=== PATIENT | male | born 1960 | race Caucasian/White ===

== ENCOUNTER 2021-11-08 17:21 | Inpatient (IN) | payer MEDICARE, MEDICAID ==
[~2021-11-08] VITALS: Ht 186.7 cm; Wt 114.5 kg
[2021-11-08] MEDS ORDERED: SENN8.6T11 PO (17:56)
[2021-11-08] MEDS ORDERED: ACET325T9 PO (17:56)
[2021-11-08] MEDS ORDERED: MELO15TA23 PO (17:56)
[2021-11-08] MEDS ORDERED: ARIP5TAB13 PO (17:56)
[2021-11-08] MEDS ORDERED: ILOP6TAB2 PO (17:56)
[2021-11-08] MEDS ORDERED: GABA-586 PO (17:56)
[2021-11-08] MEDS ORDERED: DIVA500T4 PO ×2 (17:56)
[2021-11-08] MEDS ORDERED: LEVO50TA5 PO (17:56)
[2021-11-08] MEDS ORDERED: TRAZ-125 PO (17:56)
[2021-11-08] MEDS ORDERED: MELA5TAB20 PO (17:56)
[2021-11-08] MEDS ORDERED: TIZA-75 PO (17:56)
[2021-11-08] MEDS ORDERED: CYCL1DRO EACHEYE (17:56)
[2021-11-08] MEDS ORDERED: FAMO1TAB3 PO (17:56)
[2021-11-08] MEDS ORDERED: MAGN24003 PO (17:56)
[2021-11-08] MEDS ORDERED: MAG HYDROX/AL HYDROX/SIMETH 30 ML ORAL.SUSP PO PRN (20:30)
[2021-11-08] MEDS ORDERED: METHYL SALICYLATE/MENTHOL TOPICAL OINTMENT 57GM TUBE. TP PRN (20:30)
[2021-11-08] MEDS ORDERED: MAGNESIUM HYDROXIDE 2,400 MG/30 ML ORAL.SUSP. PO PRN (20:30)
[2021-11-08 20:35] VITALS: BP 142/86
[2021-11-08] MEDS ORDERED: tiZANidine 4 MG TABLET. PO PRN (20:45)
[2021-11-08] MEDS ORDERED: calcium carbonate PO (20:52)
[2021-11-08] MEDS ORDERED: ACET1TAB33 PO (20:52)
[2021-11-08] MEDS ORDERED: CALCIUM CARBONATE 500 MG TAB.CHEW PO PRN (21:15)
[2021-11-08] MEDS: traZODone 100 MG TABLET. PO SCH (21:17)
[2021-11-08] MEDS: GABAPENTIN 300 MG CAPSULE. PO SCH (21:17)
[2021-11-08] MEDS: DIVALPROEX ER 500 MG TAB.ER.24H PO SCH (21:18)
[2021-11-08] MEDS: cycloSPORINE 0.05% OPTH 1 DROP DROPERETTE OU SCH (21:18)
[2021-11-09] MEDS: LEVOTHYROXINE 50 MCG TABLET PO SCH (05:00)
[2021-11-09 06:03] VITALS: BP 137/85
[2021-11-09 07:02] LABS: BASO # 0.1 x10^3/uL (0.0-0.2); BASO % 1 % (0-3); EOS # 0.3 x10^3/uL (0.0-0.7); EOS % 6 % (0-3); HEMATOCRIT 41.2 % (39.0-53.0); LYMPH # 1.3 x10^3/uL (1.0-4.8); LYMPH % 27 % (24-48); MEAN CORPUSCULAR HEMOGLOBIN 30 pg (25-35); MEAN CORPUSCULAR HGB CONC 34 g/dL (31-37); MEAN CORPUSCULAR VOLUME 88 fL (79-100); MONO # 0.7 x10^3/uL (0.0-1.1); MONO % 15 % (0-9); NEUT # 2.4 x10^3uL (1.8-7.7); NEUT % 51 % (31-73); PLATELET COUNT 200 x10^3/uL (140-400); RED BLOOD COUNT 4.68 x10^6/uL (4.30-5.70); RED CELL DISTRIBUTION WIDTH 13.3 % (11.5-14.5); WHITE BLOOD COUNT 4.7 x10^3/uL (4.0-11.0)
[2021-11-09 07:10] LABS: ALBUMIN 3.2 g/dL (3.4-5.0); ALBUMIN/GLOBULIN RATIO 1.1 (1.0-1.7); ALK PHOS 42 U/L (46-116); ALT (SGPT) 26 U/L (16-63); ANION GAP 4 (6-14); AST (SGOT) 10 U/L (15-37); BLOOD UREA NITROGEN 9 mg/dL (8-26); BUN/CREATININE RATIO 11 (6-20); CALCIUM 8.3 mg/dL (8.5-10.1); CARBON DIOXIDE 30 mmol/L (21-32); CHLORIDE 98 mmol/L (98-107); CREATININE 0.8 mg/dL (0.7-1.3); GFR 97.6; GLUCOSE 92 mg/dL (70-99); MAGNESIUM 1.9 mg/dL (1.8-2.4); POTASSIUM 3.9 mmol/L (3.5-5.1); SODIUM 132 mmol/L (136-145); TOTAL BILIRUBIN 0.3 mg/dL (0.2-1.0)
[2021-11-09 07:21] LABS: VAL ACID 83 mcg/mL (50-100)
[2021-11-09] MEDS: ARIPiprazole 5 MG TABLET PO SCH (08:37)
[2021-11-09] MEDS: GABAPENTIN 300 MG CAPSULE. PO SCH ×3 (08:37→19:59)
[2021-11-09] MEDS: DIVALPROEX ER 500 MG TAB.ER.24H PO SCH ×3 (08:37→19:59)
[2021-11-09] MEDS: cycloSPORINE 0.05% OPTH 1 DROP DROPERETTE OU SCH ×2 (08:37→19:58)
[2021-11-09 11:26] LABS: CHOLESTEROL/HDL RATIO 3.9; THYROID STIM HORMONE (TSH) 1.824 uIU/mL (0.358-3.740)
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
--- NOTE | 2021-11-09 12:53 | EKG ---
[address] [address] Test Date: 2021-11-09 Test Time: 05:21:51 Pat Name: DARBY HARDY Department: Room: [address] [place] [address] Gender: M Medical Records Field Technician: : 1960 Requested By: LILY SANDERS Order Number: [id number] Reading MD: Michael Ramirez Measurements Intervals [place] Rate: P: AR: QRS: QRSD: T: QT: QTc: Interpretive Statements SINUS RHYTHM Electronically Signed On 11-10-2021 13:54:59 SERVICE TRANSFORMER REPAIR SUPERVISOR by Michael Ramirez
[2021-11-09 15:59] VITALS: BP 141/92
[2021-11-09 17:26] LABS: CLARITY,URINE CLEAR; COLOR,URINE YELLOW; GLUCOSE,URINE NEG (NEG)
[2021-11-09 17:27] LABS: BACTERIA,URINE 0 /HPF (0-FEW); NITRITE,URINE NEG (NEG); UROBILINOGEN,URINE 0.2 mg/dL (0.2 mg/dL); WBC,URINE 0 /HPF (0-4)
[2021-11-09] MEDS: MELATONIN 3 MG TABLET PO SCH (19:59)
[2021-11-09] MEDS: traZODone 100 MG TABLET. PO SCH (19:59)
--- NOTE | 2021-11-09 21:34 | PDOC ---
Exam Note: Elliott Note: Please also refer to the separate dictated note~for this date of service dictated separately.~Patient seen individually. Discussed the patient with Nursing staff reviewed the chart.~Reviewed interim history and current functioning. Reviewed vital signs,~Labs/ Radiology~and current medications noted below. Continue current treatment with the changes noted in the dictated addendum note Assessment: Vital Signs/I&O: Vital Signs Date Time Temp Pulse Resp B/P (MAP) Pulse Ox O2 Delivery O2 Flow Rate FiO2 11/09/21 15:59 97.4 76 16 141/92 (108) 95 11/09/21 06:03 Room Air I & O 11/08/21 11/08/21 11/09/21 14:59 22:59 06:59 Intake Total 240 ml Balance 240 ml Labs: Laboratory Tests Test 11/09/21 06:46 11/09/21 16:25 White Blood Count 4.7 x10^3/uL (4.0-11.0) Red Blood Count 4.68 x10^6/uL (4.30-5.70) Hemoglobin 14.0 g/dL (13.0-17.5) Hematocrit 41.2 % (39.0-53.0) Mean Corpuscular Volume 88 fL (79-100) Mean Corpuscular Hemoglobin 30 pg (25-35) Mean Corpuscular Hemoglobin Concent 34 g/dL (31-37) Red Cell Distribution Width 13.3 % (11.5-14.5) Platelet Count 200 x10^3/uL (140-400) Neutrophils (%) (Auto) 51 % (31-73) Lymphocytes (%) (Auto) 27 % (24-48) Monocytes (%) (Auto) 15 % (0-9) H Eosinophils (%) (Auto) 6 % (0-3) H Basophils (%) (Auto) 1 % (0-3) Neutrophils # (Auto) 2.4 x10^3uL (1.8-7.7) Lymphocytes # (Auto) 1.3 x10^3/uL (1.0-4.8) Monocytes # (Auto) 0.7 x10^3/uL (0.0-1.1) Eosinophils # (Auto) 0.3 x10^3/uL (0.0-0.7) Basophils # (Auto) 0.1 x10^3/uL (0.0-0.2) D-Dimer (Geena) 0.68 mg/L (0.00-0.50) H Sodium Level 132 mmol/L (136-145) L Potassium Level 3.9 mmol/L (3.5-5.1) Chloride Level 98 mmol/L (98-107) Carbon Dioxide Level 30 mmol/L (21-32) Anion Gap 4 (6-14) L Blood Urea Nitrogen 9 mg/dL (8-26) Creatinine 0.8 mg/dL (0.7-1.3) Estimated GFR (Cockcroft-Gault) 97.6 BUN/Creatinine Ratio 11 (6-20) Glucose Level 92 mg/dL (70-99) Calcium Level 8.3 mg/dL (8.5-10.1) L Magnesium Level 1.9 mg/dL (1.8-2.4) Iron Level 111 ug/dL (65-175) Total Iron Binding Capacity 258 ug/dL (250-450) Iron Saturation 43 % (15-34) H Total Bilirubin 0.3 mg/dL (0.2-1.0) Aspartate Amino Transferase (AST) 10 U/L (15-37) L Alanine Aminotransferase (ALT) 26 U/L (16-63) Alkaline Phosphatase 42 U/L (46-116) L Total Protein 6.0 g/dL (6.4-8.2) L Albumin 3.2 g/dL (3.4-5.0) L Albumin/Globulin Ratio 1.1 (1.0-1.7) Triglycerides Level 154 mg/dL (0-150) H Cholesterol Level 168 mg/dL (0-200) LDL Cholesterol, Calculated 94 mg/dL (0-100) VLDL Cholesterol, Calculated 31 mg/dL (0-40) Non-HDL Cholesterol Calculated 125 mg/dL (0-129) HDL Cholesterol 43 mg/dL (40-60) Cholesterol/HDL Ratio 3.9 Thyroid Stimulating Hormone (TSH) 1.824 uIU/mL (0.358-3.740) Valproic Acid Level 83 mcg/mL (50-100) Valproic Acid Last Dose Date 11/08/21 Valproic Acid Last Dose Time 2100 Urine Collection Type Clean catch Urine Color Yellow Urine Clarity Clear Urine pH 8.0 Urine Specific [place] 1.020 Urine Protein Neg (NEG-TRACE) Urine Glucose (UA) Neg mg/dL (NEG) Urine Ketones (Stick) Neg mg/dL (NEG) Urine Blood Trace (NEG) Urine Nitrite Neg (NEG) Urine Bilirubin Neg (NEG) Urine Urobilinogen Dipstick 0.2 mg/dL (0.2 mg/dL) Urine Leukocyte Esterase Neg (NEG) Urine RBC 1-2 /HPF (0-2) Urine WBC 0 /HPF (0-4) Urine Squamous Epithelial Cells None /LPF Urine Bacteria 0 /HPF (0-FEW) Current Medications: Meds: Laboratory Tests Test 11/09/21 06:46 11/09/21 16:25 White Blood Count 4.7 x10^3/uL Red Blood Count 4.68 x10^6/uL Hemoglobin 14.0 g/dL Hematocrit 41.2 % Mean Corpuscular Volume 88 fL Mean Corpuscular Hemoglobin 30 pg Mean Corpuscular Hemoglobin Concent 34 g/dL Red Cell Distribution Width 13.3 % Platelet Count 200 x10^3/uL Neutrophils (%) (Auto) 51 % Lymphocytes (%) (Auto) 27 % Monocytes (%) (Auto) 15 % Eosinophils (%) (Auto) 6 % Basophils (%) (Auto) 1 % Neutrophils # (Auto) 2.4 x10^3uL Lymphocytes # (Auto) 1.3 x10^3/uL Monocytes # (Auto) 0.7 x10^3/uL Eosinophils # (Auto) 0.3 x10^3/uL Basophils # (Auto) 0.1 x10^3/uL D-Dimer (Geena) 0.68 mg/L Sodium Level 132 mmol/L Potassium Level 3.9 mmol/L Chloride Level 98 mmol/L Carbon Dioxide Level 30 mmol/L Anion Gap 4 Blood Urea Nitrogen 9 mg/dL Creatinine 0.8 mg/dL Estimated GFR (Cockcroft-Gault) 97.6 BUN/Creatinine Ratio 11 Glucose Level 92 mg/dL Calcium Level 8.3 mg/dL Magnesium Level 1.9 mg/dL Iron Level 111 ug/dL Total Iron Binding Capacity 258 ug/dL Iron Saturation 43 % Total Bilirubin 0.3 mg/dL Aspartate Amino Transf (AST/SGOT) 10 U/L Alanine Aminotransferase (ALT/SGPT) 26 U/L Alkaline Phosphatase 42 U/L Total Protein 6.0 g/dL Albumin 3.2 g/dL Albumin/Globulin Ratio 1.1 Triglycerides Level 154 mg/dL Cholesterol Level 168 mg/dL LDL Cholesterol, Calculated 94 mg/dL VLDL Cholesterol, Calculated 31 mg/dL Non-HDL Cholesterol Calculated 125 mg/dL HDL Cholesterol 43 mg/dL Cholesterol/HDL Ratio 3.9 Thyroid Stimulating Hormone (TSH) 1.824 uIU/mL Valproic Acid (Depakene) Level 83 mcg/mL Valproic Acid Last Dose Date 11/08/21 Valproic Acid Last Dose Time 2100 Urine Collection Type Clean catch Urine Color Yellow Urine Clarity Clear Urine pH 8.0 Urine Specific Jam[place] 1.020 Urine Protein Neg Urine Glucose (UA) Neg mg/dL Urine Ketones (Stick) Neg mg/dL Urine Blood Trace Urine Nitrite Neg Urine Bilirubin Neg Urine Urobilinogen Dipstick 0.2 mg/dL Urine Leukocyte Esterase Neg Urine RBC 1-2 /HPF Urine WBC 0 /HPF Urine Squamous Epithelial Cells None /LPF Urine Bacteria 0 /HPF Current Medications Medications (Trade) Dose Ordered Sig/Jean Route PRN Reason Start Time Stop Time Status Last Admin Dose Admin Acetaminophen (Tylenol) 650 mg PRN Q6HRS PRN PO MILD PAIN / TEMP > 100.3'F 11/08/21 20:30 Multi-Ingredient Ointment (Analgesic [place]) 1 alton PRN QID PRN TP MUSCLE PAIN 11/08/21 20:30 Al Hydroxide/Mg Hydroxide (Mylanta Plus Xs) 15 ml PRN AFTMEALHC PRN PO 2ND CHOICE DYSPEPSIA 11/08/21 20:30 Magnesium Hydroxide (Milk Of Magnesia) 2,400 mg PRN QHS PRN PO CONSTIPATION 11/08/21 20:30 Cyclosporine (Restasis) 1 drop BID OU 11/08/21 21:00 11/09/21 19:58 Gabapentin (Neurontin) 300 mg TID PO 11/08/21 21:00 11/09/21 19:59 Levothyroxine Sodium (Synthroid) 50 mcg DAILY06 PO 11/09/21 06:00 11/09/21 05:00 Tizanidine HCl (Zanaflex) 2 mg PRN Q8HRS PRN PO MUSCLE SPASMS 11/08/21 20:45 Aripiprazole (Abilify) 5 mg DAILY PO 11/09/21 09:00 11/09/21 08:37 Divalproex Sodium (Depakote Er) 500 mg AFTRNOON PO 11/09/21 13:00 11/09/21 13:25 Divalproex Sodium (Depakote Er) 500 mg BID PO 11/08/21 21:00 11/09/21 19:59 Trazodone HCl (Desyrel) 100 mg QHS PO 11/08/21 21:00 11/09/21 19:59 Non-Formulary Medication (Iloperidone (Fanapt)) 6 mg BID PO 11/08/21 21:00 UNV Melatonin (Melatonin) 6 mg QHS PO 11/09/21 21:00 11/09/21 19:59 Acetaminophen/ Codeine Phosphate (Tylenol #3) 1 tab PRN Q6HRS PRN PO MOD-SEV PAIN 11/08/21 21:00 Calcium Carbonate/ Glycine (Tums) 1,000 mg PRN Q4HRS PRN PO 1ST CHOICE INDIGESTION 11/08/21 21:15 11/09/21 08:38 Olanzapine (ZyPREXA ZYDIS) 2.5 mg PRN Q2HR PRN PO PSYCHOSIS 11/09/21 08:30 Current Medications Medications (Trade) Dose Ordered Sig/Jean Route PRN Reason Start Time Stop Time Status Last Admin Dose Admin Levothyroxine Sodium (Synthroid) 50 mcg DAILY06 PO 11/09/21 06:00 11/09/21 05:00 Aripiprazole (Abilify) 5 mg DAILY PO 11/09/21 09:00 11/09/21 08:37 Divalproex Sodium (Depakote Er) 500 mg AFTRNOON PO 11/09/21 13:00 11/09/21 13:25 Melatonin (Melatonin) 6 mg QHS PO 11/09/21 21:00 11/09/21 19:59 I have reviewed the current psychotropics carefully including drug interactions. Risk benefit ratio favors no change other than as noted in my dictated progress note. Diagnosis: Problems: (1) Schizoaffective disorder LILY SANDERS MD Nov 09, 2021 21:34
[2021-11-10] MEDS: LEVOTHYROXINE 50 MCG TABLET PO SCH (05:20)
[2021-11-10 05:37] LABS: THYROXINE 7.1 ug/dL (4.5-12.0)
[2021-11-10] MEDS: ACETAMINOPHEN 325 MG TABLET PO PRN (05:55)
[2021-11-10 06:07] VITALS: BP 142/87
[2021-11-10] MEDS: ARIPiprazole 5 MG TABLET PO SCH (09:14)
[2021-11-10] MEDS: GABAPENTIN 300 MG CAPSULE. PO SCH ×3 (09:14→20:11)
[2021-11-10] MEDS: DIVALPROEX ER 500 MG TAB.ER.24H PO SCH ×3 (09:14→20:11)
[2021-11-10] MEDS: cycloSPORINE 0.05% OPTH 1 DROP DROPERETTE OU SCH ×2 (09:14→20:11)
[2021-11-10] MEDS: ACETAMINOPHEN/CODEINE 300/30MG TABLET PO PRN (10:46)
[2021-11-10 15:54] VITALS: BP 150/80
[2021-11-10] MEDS: MELATONIN 3 MG TABLET PO SCH (20:11)
[2021-11-10] MEDS: traZODone 100 MG TABLET. PO SCH (20:11)
--- NOTE | 2021-11-10 21:34 | PDOC ---
Exam Note: Elliott Note: Please also refer to the separate dictated note~for this date of service dictated separately.~Patient seen individually. Discussed the patient with Nursing staff reviewed the chart.~Reviewed interim history and current functioning. Reviewed vital signs,~Labs/ Radiology~and current medications noted below. Continue current treatment with the changes noted in the dictated addendum note Assessment: Vital Signs/I&O: Vital Signs Date Time Temp Pulse Resp B/P (MAP) Pulse Ox O2 Delivery O2 Flow Rate FiO2 11/10/21 15:54 98.6 64 18 150/80 (103) 99 Room Air I & O 11/09/21 11/09/21 11/10/21 15:00 23:00 07:00 Intake Total 660 ml 480 ml Balance 660 ml 480 ml Current Medications: Meds: Current Medications Medications (Trade) Dose Ordered Sig/Jean Route PRN Reason Start Time Stop Time Status Last Admin Dose Admin Acetaminophen (Tylenol) 650 mg PRN Q6HRS PRN PO MILD PAIN / TEMP > 100.3'F 11/08/21 20:30 11/10/21 05:55 Multi-Ingredient Ointment (Analgesic [place]) 1 alton PRN QID PRN TP MUSCLE PAIN 11/08/21 20:30 Al Hydroxide/Mg Hydroxide (Mylanta Plus Xs) 15 ml PRN AFTMEALHC PRN PO 2ND CHOICE DYSPEPSIA 11/08/21 20:30 Magnesium Hydroxide (Milk Of Magnesia) 2,400 mg PRN QHS PRN PO CONSTIPATION 11/08/21 20:30 Cyclosporine (Restasis) 1 drop BID OU 11/08/21 21:00 11/10/21 20:11 Gabapentin (Neurontin) 300 mg TID PO 11/08/21 21:00 11/10/21 20:11 Levothyroxine Sodium (Synthroid) 50 mcg DAILY06 PO 11/09/21 06:00 11/10/21 05:20 Tizanidine HCl (Zanaflex) 2 mg PRN Q8HRS PRN PO MUSCLE SPASMS 11/08/21 20:45 Aripiprazole (Abilify) 5 mg DAILY PO 11/09/21 09:00 11/10/21 20:32 DC 11/10/21 09:14 Divalproex Sodium (Depakote Er) 500 mg AFTRNOON PO 11/09/21 13:00 11/10/21 13:26 Divalproex Sodium (Depakote Er) 500 mg BID PO 11/08/21 21:00 11/10/21 20:11 Trazodone HCl (Desyrel) 100 mg QHS PO 11/08/21 21:00 11/10/21 20:11 Non-Formulary Medication (Iloperidone (Fanapt)) 6 mg BID PO 11/08/21 21:00 UNV Melatonin (Melatonin) 6 mg QHS PO 11/09/21 21:00 11/10/21 20:11 Acetaminophen/ Codeine Phosphate (Tylenol #3) 1 tab PRN Q6HRS PRN PO MOD-SEV PAIN 11/08/21 21:00 11/10/21 10:46 Calcium Carbonate/ Glycine (Tums) 1,000 mg PRN Q4HRS PRN PO 1ST CHOICE INDIGESTION 11/08/21 21:15 11/09/21 08:38 Olanzapine (ZyPREXA ZYDIS) 2.5 mg PRN Q2HR PRN PO PSYCHOSIS 11/09/21 08:30 Aripiprazole (Abilify) 10 mg DAILY PO 11/11/21 09:00 I have reviewed the current psychotropics carefully including drug interactions. Risk benefit ratio favors no change other than as noted in my dictated progress note. Diagnosis: Problems: (1) Schizoaffective disorder LILY SANDERS MD Nov 10, 2021 21:34
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
[2021-11-11] MEDS: LEVOTHYROXINE 50 MCG TABLET PO SCH (04:58)
[2021-11-11 06:01] VITALS: BP 139/85
--- NOTE | 2021-11-11 08:03 | PDOC ---
Exam Note: Elliott Note: This note is a late entry for 11/10/2021 covers elements not covered in my initial note. Subjective: The patient was seen individually on 11/10/2021, discussed and reviewed the chart with Ganesh FOX. The patient slept 8-1/2 hours previous night. He is reasonably oriented. He does complain of headaches. I had been called yesterday that the patients Iloperidone could not be substituted here and attempt will be made to obtain from the detention. In the meantime, we will increase his Abilify from 5 mg a day to 10 mg a day for his psychosis. Review of Systems: No CV, , pulmonary, eye system symptoms on review. Mental Status Exam: The patient is reasonably oriented. I met with him in his room. Speech is coherent, a little pressured. Abstraction fair. Computation impaired. Language function intact. Attention span is fair. Mood and affect remains somewhat anxious, labile. I questioned him persistently and carefully to clarify when his psychotropics was started and by whom and he seemed quite oblivious of this. Laboratory Data: Reviewed. Impression: Schizoaffective disorder, bipolar type, mixed with psychotic features. Anxiety disorder unspecified. Impulse control disorder unspecified. Plan: The patient has been smoking at the facility prior to coming to us. We have started him on Nicorette patch. We will increase the Abilify as noted. Maintain Depakote current dosage 500 mg b.i.d. Labs level to be checked tomorrow morning. Assessment: Vital Signs/I&O: Vital Signs Date Time Temp Pulse Resp B/P (MAP) Pulse Ox O2 Delivery O2 Flow Rate FiO2 11/11/21 06:01 97.7 65 16 139/85 (103) 95 11/10/21 15:54 Room Air I & O 11/10/21 11/10/21 11/11/21 15:00 23:00 07:00 Intake Total 680 ml 240 ml 240 ml Balance 680 ml 240 ml 240 ml Current Medications: I have reviewed the current psychotropics carefully including drug interactions. Risk benefit ratio favors no change other than as noted in my dictated progress note. Diagnosis: Problems: (1) Schizoaffective disorder, bipolar type (2) Anxiety disorder, unspecified (3) Impulse control disorder, unspecified LILY SANDERS MD Nov 11, 2021 08:03
[2021-11-11] MEDS: NICOTINE 14MG PATCH. TD SCH (08:38)
[2021-11-11] MEDS: ARIPiprazole 10 MG TABLET PO SCH (08:38)
[2021-11-11] MEDS: GABAPENTIN 300 MG CAPSULE. PO SCH ×3 (08:38→20:04)
[2021-11-11] MEDS: DIVALPROEX ER 500 MG TAB.ER.24H PO SCH ×3 (08:38→20:04)
[2021-11-11] MEDS: cycloSPORINE 0.05% OPTH 1 DROP DROPERETTE OU SCH ×2 (08:38→20:04)
[2021-11-11 15:43] VITALS: BP 135/86
[2021-11-11] MEDS: MELATONIN 3 MG TABLET PO SCH (20:03)
[2021-11-11] MEDS: traZODone 100 MG TABLET. PO SCH (20:04)
[2021-11-11] MEDS: ACETAMINOPHEN/CODEINE 300/30MG TABLET PO PRN (20:07)
--- NOTE | 2021-11-11 21:12 | PDOC ---
Exam Note: Elliott Note: Please also refer to the separate dictated note~for this date of service dictated separately.~Patient seen individually. Discussed the patient with Nursing staff reviewed the chart.~Reviewed interim history and current functioning. Reviewed vital signs,~Labs/ Radiology~and current medications noted below. Continue current treatment with the changes noted in the dictated addendum note Assessment: Vital Signs/I&O: Vital Signs Date Time Temp Pulse Resp B/P (MAP) Pulse Ox O2 Delivery O2 Flow Rate FiO2 11/11/21 15:43 98.1 81 16 135/86 (102) 95 11/10/21 15:54 Room Air I & O 11/10/21 11/10/21 11/11/21 15:00 23:00 07:00 Intake Total 680 ml 240 ml 240 ml Balance 680 ml 240 ml 240 ml Current Medications: Meds: Current Medications Medications (Trade) Dose Ordered Sig/Jean Route PRN Reason Start Time Stop Time Status Last Admin Dose Admin Acetaminophen (Tylenol) 650 mg PRN Q6HRS PRN PO MILD PAIN / TEMP > 100.3'F 11/08/21 20:30 11/10/21 05:55 Multi-Ingredient Ointment (Analgesic [place]) 1 alton PRN QID PRN TP MUSCLE PAIN 11/08/21 20:30 Al Hydroxide/Mg Hydroxide (Mylanta Plus Xs) 15 ml PRN AFTMEALHC PRN PO 2ND CHOICE DYSPEPSIA 11/08/21 20:30 Magnesium Hydroxide (Milk Of Magnesia) 2,400 mg PRN QHS PRN PO CONSTIPATION 11/08/21 20:30 Cyclosporine (Restasis) 1 drop BID OU 11/08/21 21:00 11/11/21 20:04 Gabapentin (Neurontin) 300 mg TID PO 11/08/21 21:00 11/11/21 20:04 Levothyroxine Sodium (Synthroid) 50 mcg DAILY06 PO 11/09/21 06:00 11/11/21 04:58 Tizanidine HCl (Zanaflex) 2 mg PRN Q8HRS PRN PO MUSCLE SPASMS 11/08/21 20:45 Aripiprazole (Abilify) 5 mg DAILY PO 11/09/21 09:00 11/10/21 20:32 DC 11/10/21 09:14 Divalproex Sodium (Depakote Er) 500 mg AFTRNOON PO 11/09/21 13:00 11/11/21 13:08 Divalproex Sodium (Depakote Er) 500 mg BID PO 11/08/21 21:00 11/11/21 20:04 Trazodone HCl (Desyrel) 100 mg QHS PO 11/08/21 21:00 11/11/21 20:04 Non-Formulary Medication (Iloperidone (Fanapt)) 6 mg BID PO 11/08/21 21:00 Melatonin (Melatonin) 6 mg QHS PO 11/09/21 21:00 11/11/21 20:03 Acetaminophen/ Codeine Phosphate (Tylenol #3) 1 tab PRN Q6HRS PRN PO MOD-SEV PAIN 11/08/21 21:00 11/11/21 20:07 Calcium Carbonate/ Glycine (Tums) 1,000 mg PRN Q4HRS PRN PO 1ST CHOICE INDIGESTION 11/08/21 21:15 11/09/21 08:38 Olanzapine (ZyPREXA ZYDIS) 2.5 mg PRN Q2HR PRN PO PSYCHOSIS 11/09/21 08:30 Aripiprazole (Abilify) 10 mg DAILY PO 11/11/21 09:00 11/11/21 08:38 Nicotine (Nicoderm Cq 14mg Patch) 1 patch DAILY TD 11/11/21 09:00 11/11/21 08:38 Current Medications Medications (Trade) Dose Ordered Sig/Jean Route PRN Reason Start Time Stop Time Status Last Admin Dose Admin Aripiprazole (Abilify) 10 mg DAILY PO 11/11/21 09:00 11/11/21 08:38 Nicotine (Nicoderm Cq 14mg Patch) 1 patch DAILY TD 11/11/21 09:00 11/11/21 08:38 I have reviewed the current psychotropics carefully including drug interactions. Risk benefit ratio favors no change other than as noted in my dictated progress note. Diagnosis: Problems: (1) Schizoaffective disorder, bipolar type (2) Impulse control disorder, unspecified (3) Anxiety disorder, unspecified LILY SANDERS MD Nov 11, 2021 21:12
[2021-11-12] MEDS: LEVOTHYROXINE 50 MCG TABLET PO SCH (05:26)
[2021-11-12 06:26] VITALS: BP 119/75
[2021-11-12] MEDS: GABAPENTIN 300 MG CAPSULE. PO SCH ×3 (08:06→20:30)
[2021-11-12] MEDS: ARIPiprazole 10 MG TABLET PO SCH (08:06)
[2021-11-12] MEDS: cycloSPORINE 0.05% OPTH 1 DROP DROPERETTE OU SCH ×2 (08:07→20:31)
[2021-11-12] MEDS: DIVALPROEX ER 500 MG TAB.ER.24H PO SCH ×3 (08:07→20:30)
[2021-11-12] MEDS: NICOTINE 14MG PATCH. TD SCH (08:07)
[2021-11-12] MEDS: ACETAMINOPHEN/CODEINE 300/30MG TABLET PO PRN (08:13)
[2021-11-12 16:14] VITALS: BP 139/85
[2021-11-12] MEDS: MELATONIN 3 MG TABLET PO SCH (20:30)
[2021-11-12] MEDS: traZODone 100 MG TABLET. PO SCH (20:30)
--- NOTE | 2021-11-12 21:38 | PDOC ---
Exam Note: Elliott Note: Please also refer to the separate dictated note~for this date of service dictated separately.~Patient seen individually. Discussed the patient with Nursing staff reviewed the chart.~Reviewed interim history and current functioning. Reviewed vital signs,~Labs/ Radiology~and current medications noted below. Continue current treatment with the changes noted in the dictated addendum note Assessment: Vital Signs/I&O: Vital Signs Date Time Temp Pulse Resp B/P (MAP) Pulse Ox O2 Delivery O2 Flow Rate FiO2 11/12/21 16:14 98.2 67 20 139/85 (103) 97 11/12/21 09:00 Room Air I & O 11/11/21 11/11/21 11/12/21 15:00 23:00 07:00 Intake Total 1140 ml 600 ml Balance 1140 ml 600 ml Current Medications: Meds: Current Medications Medications (Trade) Dose Ordered Sig/Jean Route PRN Reason Start Time Stop Time Status Last Admin Dose Admin Acetaminophen (Tylenol) 650 mg PRN Q6HRS PRN PO MILD PAIN / TEMP > 100.3'F 11/08/21 20:30 11/10/21 05:55 Multi-Ingredient Ointment (Analgesic [place]) 1 alton PRN QID PRN TP MUSCLE PAIN 11/08/21 20:30 Al Hydroxide/Mg Hydroxide (Mylanta Plus Xs) 15 ml PRN AFTMEALHC PRN PO 2ND CHOICE DYSPEPSIA 11/08/21 20:30 Magnesium Hydroxide (Milk Of Magnesia) 2,400 mg PRN QHS PRN PO CONSTIPATION 11/08/21 20:30 Cyclosporine (Restasis) 1 drop BID OU 11/08/21 21:00 11/12/21 20:31 Gabapentin (Neurontin) 300 mg TID PO 11/08/21 21:00 11/12/21 20:30 Levothyroxine Sodium (Synthroid) 50 mcg DAILY06 PO 11/09/21 06:00 11/12/21 05:26 Tizanidine HCl (Zanaflex) 2 mg PRN Q8HRS PRN PO MUSCLE SPASMS 11/08/21 20:45 Aripiprazole (Abilify) 5 mg DAILY PO 11/09/21 09:00 11/10/21 20:32 DC 11/10/21 09:14 Divalproex Sodium (Depakote Er) 500 mg AFTRNOON PO 11/09/21 13:00 11/12/21 13:06 Divalproex Sodium (Depakote Er) 500 mg BID PO 11/08/21 21:00 11/12/21 20:30 Trazodone HCl (Desyrel) 100 mg QHS PO 11/08/21 21:00 11/12/21 20:30 Non-Formulary Medication (Iloperidone (Fanapt)) 6 mg BID PO 11/08/21 21:00 11/12/21 20:32 Melatonin (Melatonin) 6 mg QHS PO 11/09/21 21:00 11/12/21 20:30 Acetaminophen/ Codeine Phosphate (Tylenol #3) 1 tab PRN Q6HRS PRN PO MOD-SEV PAIN 11/08/21 21:00 11/12/21 08:13 Calcium Carbonate/ Glycine (Tums) 1,000 mg PRN Q4HRS PRN PO 1ST CHOICE INDIGESTION 11/08/21 21:15 11/09/21 08:38 Olanzapine (ZyPREXA ZYDIS) 2.5 mg PRN Q2HR PRN PO PSYCHOSIS 11/09/21 08:30 Aripiprazole (Abilify) 10 mg DAILY PO 11/11/21 09:00 11/12/21 08:06 Nicotine (Nicoderm Cq 14mg Patch) 1 patch DAILY TD 11/11/21 09:00 11/12/21 08:07 I have reviewed the current psychotropics carefully including drug interactions. Risk benefit ratio favors no change other than as noted in my dictated progress note. Diagnosis: Problems: (1) Schizoaffective disorder, bipolar type (2) Impulse control disorder, unspecified (3) Anxiety disorder, unspecified LILY SANDERS MD Nov 12, 2021 21:37
[2021-11-13] MEDS: LEVOTHYROXINE 50 MCG TABLET PO SCH (05:30)
[2021-11-13 06:11] VITALS: BP 135/85
--- NOTE | 2021-11-13 06:52 | PDOC ---
Exam Note: Elliott Note: This note is a late entry for 11/11/2021 covers elements not covered in my initial note. Subjective: The patient was seen individually on 11/11/2021, discussed and reviewed the chart with Susan FOX. Per nursing report the patient has been calm, alert and oriented x4. He had telephone call with his parents. Pharmacy has obtained Fanapt from outside pharmacy and he has been started back on his original dosage 6 mg b.i.d. Valproic acid level 83 therapeutic on 11/09. I met with him in his room. Review of Systems: No CV, , pulmonary, eye system symptoms on review. Mental Status Exam: The patient is reasonably oriented. Speech is coherent, a little pressured. Abstraction fair. Computation impaired. Language function intact. Mood and affect somewhat anxious, labile but improved. No suicidal or homicidal ideation. Laboratory Data: Reviewed. Impression: Schizoaffective disorder, bipolar type, mixed with psychotic features. Anxiety disorder unspecified. Impulse control disorder unspecified. Plan: Continue current psychotropics including Depakote since level is therapeutic and he has been restarted on Fanapt. We have increased Abilify. Rest unchanged for now. Assessment: Vital Signs/I&O: Vital Signs Date Time Temp Pulse Resp B/P (MAP) Pulse Ox O2 Delivery O2 Flow Rate FiO2 11/13/21 06:11 97.5 66 16 135/85 (102) 97 11/12/21 09:00 Room Air I & O 11/12/21 11/12/21 11/13/21 15:00 23:00 07:00 Intake Total 720 ml 240 ml 240 ml Balance 720 ml 240 ml 240 ml Current Medications: I have reviewed the current psychotropics carefully including drug interactions. Risk benefit ratio favors no change other than as noted in my dictated progress note. Diagnosis: Problems: (1) Schizoaffective disorder, bipolar type (2) Impulse control disorder, unspecified (3) Anxiety disorder, unspecified LILY SANDERS MD Nov 13, 2021 06:52
--- NOTE | 2021-11-13 07:06 | PDOC ---
Exam Note: Elliott Note: This note is a late entry for 11/12/2021 covers elements not covered in my initial note. Subjective: The patient was seen individually on 11/12/2021, discussed and reviewed the chart with Pancho FOX. The patient slept 7 hours previous night. He has not been agitated or aggressive, quite pleasant, cooperative per nursing report. Review of Systems: No CV, , pulmonary, eye system symptoms on review. Mental Status Exam: The patient is reasonably oriented. Speech is coherent. Abstraction fair. Computation impaired. Language function intact. Attention span short. Mood and affect somewhat anxious, less labile. Laboratory Data: Reviewed. Impression: Schizoaffective disorder, bipolar type, mixed with psychotic features. Anxiety disorder unspecified. Impulse control disorder unspecified. Plan: Continue current psychotropics. The patient is back on Iloperidone 6 mg twice a day. Check labs and valproic acid level. Adjust as clinically indicated. Assessment: Vital Signs/I&O: Vital Signs Date Time Temp Pulse Resp B/P (MAP) Pulse Ox O2 Delivery O2 Flow Rate FiO2 11/13/21 06:11 97.5 66 16 135/85 (102) 97 11/12/21 09:00 Room Air I & O 11/12/21 11/12/21 11/13/21 15:00 23:00 07:00 Intake Total 720 ml 240 ml 240 ml Balance 720 ml 240 ml 240 ml Current Medications: I have reviewed the current psychotropics carefully including drug interactions. Risk benefit ratio favors no change other than as noted in my dictated progress note. Diagnosis: Problems: (1) Schizoaffective disorder, bipolar type (2) Impulse control disorder, unspecified (3) Anxiety disorder, unspecified LILY SANDERS MD Nov 13, 2021 07:06
[2021-11-13] MEDS: cycloSPORINE 0.05% OPTH 1 DROP DROPERETTE OU SCH ×2 (08:47→20:50)
[2021-11-13] MEDS: NICOTINE 14MG PATCH. TD SCH (08:48)
[2021-11-13] MEDS: GABAPENTIN 300 MG CAPSULE. PO SCH ×3 (08:49→20:49)
[2021-11-13] MEDS: DIVALPROEX ER 500 MG TAB.ER.24H PO SCH ×3 (08:49→20:49)
[2021-11-13] MEDS: ARIPiprazole 10 MG TABLET PO SCH (08:49)
[2021-11-13 15:37] VITALS: BP 115/73
[2021-11-13 15:39] VITALS: BP 115/73
[2021-11-13] MEDS: MELATONIN 3 MG TABLET PO SCH (20:49)
[2021-11-13] MEDS: traZODone 100 MG TABLET. PO SCH (20:49)
--- NOTE | 2021-11-13 21:29 | PDOC ---
Exam Note: Elliott Note: Please also refer to the separate dictated note~for this date of service dictated separately.~Patient seen individually. Discussed the patient with Nursing staff reviewed the chart.~Reviewed interim history and current functioning. Reviewed vital signs,~Labs/ Radiology~and current medications noted below. Continue current treatment with the changes noted in the dictated addendum note Assessment: Vital Signs/I&O: Vital Signs Date Time Temp Pulse Resp B/P (MAP) Pulse Ox O2 Delivery O2 Flow Rate FiO2 11/13/21 15:39 98.1 90 18 115/73 (87) 98 Room Air I & O 11/12/21 11/12/21 11/13/21 15:00 23:00 07:00 Intake Total 720 ml 240 ml 240 ml Balance 720 ml 240 ml 240 ml Current Medications: Meds: Current Medications Medications (Trade) Dose Ordered Sig/Jean Route PRN Reason Start Time Stop Time Status Last Admin Dose Admin Acetaminophen (Tylenol) 650 mg PRN Q6HRS PRN PO MILD PAIN / TEMP > 100.3'F 11/08/21 20:30 11/10/21 05:55 Multi-Ingredient Ointment (Analgesic [place]) 1 alton PRN QID PRN TP MUSCLE PAIN 11/08/21 20:30 Al Hydroxide/Mg Hydroxide (Mylanta Plus Xs) 15 ml PRN AFTMEALHC PRN PO 2ND CHOICE DYSPEPSIA 11/08/21 20:30 Magnesium Hydroxide (Milk Of Magnesia) 2,400 mg PRN QHS PRN PO CONSTIPATION 11/08/21 20:30 Cyclosporine (Restasis) 1 drop BID OU 11/08/21 21:00 11/13/21 20:50 Gabapentin (Neurontin) 300 mg TID PO 11/08/21 21:00 11/13/21 20:49 Levothyroxine Sodium (Synthroid) 50 mcg DAILY06 PO 11/09/21 06:00 11/13/21 05:30 Tizanidine HCl (Zanaflex) 2 mg PRN Q8HRS PRN PO MUSCLE SPASMS 11/08/21 20:45 Aripiprazole (Abilify) 5 mg DAILY PO 11/09/21 09:00 11/10/21 20:32 DC 11/10/21 09:14 Divalproex Sodium (Depakote Er) 500 mg AFTRNOON PO 11/09/21 13:00 11/13/21 13:35 Divalproex Sodium (Depakote Er) 500 mg BID PO 11/08/21 21:00 11/13/21 20:49 Trazodone HCl (Desyrel) 100 mg QHS PO 11/08/21 21:00 11/13/21 20:49 Non-Formulary Medication (Iloperidone (Fanapt)) 6 mg BID PO 11/08/21 21:00 11/13/21 20:49 Melatonin (Melatonin) 6 mg QHS PO 11/09/21 21:00 11/13/21 20:49 Acetaminophen/ Codeine Phosphate (Tylenol #3) 1 tab PRN Q6HRS PRN PO MOD-SEV PAIN 11/08/21 21:00 11/12/21 08:13 Calcium Carbonate/ Glycine (Tums) 1,000 mg PRN Q4HRS PRN PO 1ST CHOICE INDIGESTION 11/08/21 21:15 11/09/21 08:38 Olanzapine (ZyPREXA ZYDIS) 2.5 mg PRN Q2HR PRN PO PSYCHOSIS 11/09/21 08:30 Aripiprazole (Abilify) 10 mg DAILY PO 11/11/21 09:00 11/13/21 08:49 Nicotine (Nicoderm Cq 14mg Patch) 1 patch DAILY TD 11/11/21 09:00 11/13/21 08:48 I have reviewed the current psychotropics carefully including drug interactions. Risk benefit ratio favors no change other than as noted in my dictated progress note. Diagnosis: Problems: (1) Schizoaffective disorder, bipolar type (2) Impulse control disorder, unspecified (3) Anxiety disorder, unspecified LILY SANDERS MD Nov 13, 2021 21:29
[2021-11-14] MEDS: LEVOTHYROXINE 50 MCG TABLET PO SCH (05:48)
[2021-11-14 06:06] VITALS: BP 138/85
[2021-11-14] MEDS: DIVALPROEX ER 500 MG TAB.ER.24H PO SCH ×3 (08:21→19:55)
[2021-11-14] MEDS: cycloSPORINE 0.05% OPTH 1 DROP DROPERETTE OU SCH ×2 (08:21→19:54)
[2021-11-14] MEDS: ARIPiprazole 10 MG TABLET PO SCH (08:21)
[2021-11-14] MEDS: GABAPENTIN 300 MG CAPSULE. PO SCH ×3 (08:21→19:55)
[2021-11-14] MEDS: NICOTINE 14MG PATCH. TD SCH (08:22)
[2021-11-14 16:02] VITALS: BP 148/82
[2021-11-14] MEDS ORDERED: NICOTINE POLACRILEX GUM 2 MG GUM. BC PRN (17:45)
[2021-11-14] MEDS: traZODone 100 MG TABLET. PO SCH (19:55)
[2021-11-14] MEDS: MELATONIN 3 MG TABLET PO SCH (19:55)
--- NOTE | 2021-11-14 21:29 | PDOC ---
Exam Note: Elliott Note: Please also refer to the separate dictated note~for this date of service dictated separately.~Patient seen individually. Discussed the patient with Nursing staff reviewed the chart.~Reviewed interim history and current functioning. Reviewed vital signs,~Labs/ Radiology~and current medications noted below. Continue current treatment with the changes noted in the dictated addendum note Assessment: Vital Signs/I&O: Vital Signs Date Time Temp Pulse Resp B/P (MAP) Pulse Ox O2 Delivery O2 Flow Rate FiO2 11/14/21 16:02 97.9 74 18 148/82 (104) 99 11/13/21 15:39 Room Air I & O 11/13/21 11/13/21 11/14/21 15:00 23:00 07:00 Intake Total 480 ml 720 ml Balance 480 ml 720 ml Current Medications: Meds: Current Medications Medications (Trade) Dose Ordered Sig/Jean Route PRN Reason Start Time Stop Time Status Last Admin Dose Admin Acetaminophen (Tylenol) 650 mg PRN Q6HRS PRN PO MILD PAIN / TEMP > 100.3'F 11/08/21 20:30 11/10/21 05:55 Multi-Ingredient Ointment (Analgesic [place]) 1 alton PRN QID PRN TP MUSCLE PAIN 11/08/21 20:30 Al Hydroxide/Mg Hydroxide (Mylanta Plus Xs) 15 ml PRN AFTMEALHC PRN PO 2ND CHOICE DYSPEPSIA 11/08/21 20:30 Magnesium Hydroxide (Milk Of Magnesia) 2,400 mg PRN QHS PRN PO CONSTIPATION 11/08/21 20:30 Cyclosporine (Restasis) 1 drop BID OU 11/08/21 21:00 11/14/21 19:54 Gabapentin (Neurontin) 300 mg TID PO 11/08/21 21:00 11/14/21 19:55 Levothyroxine Sodium (Synthroid) 50 mcg DAILY06 PO 11/09/21 06:00 11/14/21 05:48 Tizanidine HCl (Zanaflex) 2 mg PRN Q8HRS PRN PO MUSCLE SPASMS 11/08/21 20:45 Aripiprazole (Abilify) 5 mg DAILY PO 11/09/21 09:00 11/10/21 20:32 DC 11/10/21 09:14 Divalproex Sodium (Depakote Er) 500 mg AFTRNOON PO 11/09/21 13:00 11/14/21 12:13 Divalproex Sodium (Depakote Er) 500 mg BID PO 11/08/21 21:00 11/14/21 19:55 Trazodone HCl (Desyrel) 100 mg QHS PO 11/08/21 21:00 11/14/21 19:55 Non-Formulary Medication (Iloperidone (Fanapt)) 6 mg BID PO 11/08/21 21:00 11/14/21 19:56 Melatonin (Melatonin) 6 mg QHS PO 11/09/21 21:00 11/14/21 19:55 Acetaminophen/ Codeine Phosphate (Tylenol #3) 1 tab PRN Q6HRS PRN PO MOD-SEV PAIN 11/08/21 21:00 11/12/21 08:13 Calcium Carbonate/ Glycine (Tums) 1,000 mg PRN Q4HRS PRN PO 1ST CHOICE INDIGESTION 11/08/21 21:15 11/09/21 08:38 Olanzapine (ZyPREXA ZYDIS) 2.5 mg PRN Q2HR PRN PO PSYCHOSIS 11/09/21 08:30 Aripiprazole (Abilify) 10 mg DAILY PO 11/11/21 09:00 11/14/21 08:21 Nicotine (Nicoderm Cq 14mg Patch) 1 patch DAILY TD 11/11/21 09:00 11/14/21 17:42 DC 11/14/21 08:22 Nicotine Polacrilex (Nicorette Gum) 2 mg PRN Q2HRS PRN BC SMOKING CESSATION 11/14/21 17:45 I have reviewed the current psychotropics carefully including drug interactions. Risk benefit ratio favors no change other than as noted in my dictated progress note. Diagnosis: Problems: (1) Schizoaffective disorder, bipolar type (2) Impulse control disorder, unspecified (3) Anxiety disorder, unspecified LILY SANDERS MD Nov 14, 2021 21:29
[2021-11-15] MEDS: LEVOTHYROXINE 50 MCG TABLET PO SCH (05:50)
[2021-11-15 06:20] VITALS: BP 134/86
--- NOTE | 2021-11-15 07:11 | PDOC ---
Exam Note: Elliott Note: This note is a late entry for 11/13/2021 covers elements not covered in my initial note. Subjective: The patient was seen individually on 11/13/2021, discussed and reviewed the chart with Carlie FOX. The patient slept 7-3/4 hours previous night. He is well oriented, has done well on the unit. No suicidal ideation. I met with him outside his room. He was very animated, vernal, appropriate. Review of Systems: No CV, , pulmonary, eye system symptoms on review. Mental Status Exam: The patient is reasonably oriented. Speech is coherent. Abstraction fair. Computation impaired. Language function intact. Attention span short. Mood and affect anxious, labile. No psychotic symptoms, suicidal or homicidal ideation. Laboratory Data: Reviewed. Impression: Schizoaffective disorder, bipolar type, mixed with psychotic features. Anxiety disorder unspecified. Impulse control disorder unspecified. Plan: Continue current psychotropics. The patient is back on Iloperidone 6 mg twice a day. Check labs and valproic acid level. Adjust as clinically indicated. Assessment: Vital Signs/I&O: Vital Signs Date Time Temp Pulse Resp B/P (MAP) Pulse Ox O2 Delivery O2 Flow Rate FiO2 11/15/21 06:20 97.8 66 16 134/86 (102) 96 11/13/21 15:39 Room Air I & O 11/14/21 11/14/21 11/15/21 15:00 23:00 07:00 Intake Total 600 ml 720 ml Balance 600 ml 720 ml Current Medications: I have reviewed the current psychotropics carefully including drug interactions. Risk benefit ratio favors no change other than as noted in my dictated progress note. Diagnosis: Problems: (1) Schizoaffective disorder, bipolar type (2) Impulse control disorder, unspecified (3) Anxiety disorder, unspecified LILY SANDERS MD Nov 15, 2021 07:11
[2021-11-15] MEDS: cycloSPORINE 0.05% OPTH 1 DROP DROPERETTE OU SCH ×2 (08:18→20:10)
[2021-11-15] MEDS: GABAPENTIN 300 MG CAPSULE. PO SCH ×3 (08:19→20:10)
[2021-11-15] MEDS: DIVALPROEX ER 500 MG TAB.ER.24H PO SCH ×3 (08:19→20:10)
[2021-11-15] MEDS: ARIPiprazole 10 MG TABLET PO SCH (08:19)
[2021-11-15] MEDS: ACETAMINOPHEN 325 MG TABLET PO PRN (14:54)
[2021-11-15 15:36] VITALS: BP 133/88
[2021-11-15] MEDS: MELATONIN 3 MG TABLET PO SCH (20:10)
[2021-11-15] MEDS: traZODone 100 MG TABLET. PO SCH (20:11)
--- NOTE | 2021-11-15 21:18 | PDOC ---
Exam Note: Elliott Note: Please also refer to the separate dictated note~for this date of service dictated separately.~Patient seen individually. Discussed the patient with Nursing staff reviewed the chart.~Reviewed interim history and current functioning. Reviewed vital signs,~Labs/ Radiology~and current medications noted below. Continue current treatment with the changes noted in the dictated addendum note Assessment: Vital Signs/I&O: Vital Signs Date Time Temp Pulse Resp B/P (MAP) Pulse Ox O2 Delivery O2 Flow Rate FiO2 11/15/21 15:36 97.3 79 12 133/88 (103) 95 Room Air I & O 11/14/21 11/14/21 11/15/21 15:00 23:00 07:00 Intake Total 600 ml 720 ml Balance 600 ml 720 ml Current Medications: Meds: Current Medications Medications (Trade) Dose Ordered Sig/Jean Route PRN Reason Start Time Stop Time Status Last Admin Dose Admin Acetaminophen (Tylenol) 650 mg PRN Q6HRS PRN PO MILD PAIN / TEMP > 100.3'F 11/08/21 20:30 11/15/21 14:54 Multi-Ingredient Ointment (Analgesic [place]) 1 alton PRN QID PRN TP MUSCLE PAIN 11/08/21 20:30 Al Hydroxide/Mg Hydroxide (Mylanta Plus Xs) 15 ml PRN AFTMEALHC PRN PO 2ND CHOICE DYSPEPSIA 11/08/21 20:30 Magnesium Hydroxide (Milk Of Magnesia) 2,400 mg PRN QHS PRN PO CONSTIPATION 11/08/21 20:30 Cyclosporine (Restasis) 1 drop BID OU 11/08/21 21:00 11/15/21 20:10 Gabapentin (Neurontin) 300 mg TID PO 11/08/21 21:00 11/15/21 20:10 Levothyroxine Sodium (Synthroid) 50 mcg DAILY06 PO 11/09/21 06:00 11/15/21 05:50 Tizanidine HCl (Zanaflex) 2 mg PRN Q8HRS PRN PO MUSCLE SPASMS 11/08/21 20:45 Aripiprazole (Abilify) 5 mg DAILY PO 11/09/21 09:00 11/10/21 20:32 DC 11/10/21 09:14 Divalproex Sodium (Depakote Er) 500 mg AFTRNOON PO 11/09/21 13:00 11/15/21 12:38 Divalproex Sodium (Depakote Er) 500 mg BID PO 11/08/21 21:00 11/15/21 20:10 Trazodone HCl (Desyrel) 100 mg QHS PO 11/08/21 21:00 11/15/21 20:11 Non-Formulary Medication (Iloperidone (Fanapt)) 6 mg BID PO 11/08/21 21:00 11/15/21 20:11 Melatonin (Melatonin) 6 mg QHS PO 11/09/21 21:00 11/15/21 20:10 Acetaminophen/ Codeine Phosphate (Tylenol #3) 1 tab PRN Q6HRS PRN PO MOD-SEV PAIN 11/08/21 21:00 11/12/21 08:13 Calcium Carbonate/ Glycine (Tums) 1,000 mg PRN Q4HRS PRN PO 1ST CHOICE INDIGESTION 11/08/21 21:15 11/09/21 08:38 Olanzapine (ZyPREXA ZYDIS) 2.5 mg PRN Q2HR PRN PO PSYCHOSIS 11/09/21 08:30 Aripiprazole (Abilify) 10 mg DAILY PO 11/11/21 09:00 11/15/21 08:19 Nicotine (Nicoderm Cq 14mg Patch) 1 patch DAILY TD 11/11/21 09:00 11/14/21 17:42 DC 11/14/21 08:22 Nicotine Polacrilex (Nicorette Gum) 2 mg PRN Q2HRS PRN BC SMOKING CESSATION 11/14/21 17:45 I have reviewed the current psychotropics carefully including drug interactions. Risk benefit ratio favors no change other than as noted in my dictated progress note. Diagnosis: Problems: (1) Schizoaffective disorder, bipolar type (2) Impulse control disorder, unspecified (3) Anxiety disorder, unspecified LILY SANDERS MD Nov 15, 2021 21:18
[2021-11-16] MEDS: LEVOTHYROXINE 50 MCG TABLET PO SCH (05:40)
[2021-11-16 06:18] VITALS: BP 146/84
[2021-11-16] MEDS: ARIPiprazole 10 MG TABLET PO SCH (08:51)
[2021-11-16] MEDS: DIVALPROEX ER 500 MG TAB.ER.24H PO SCH ×3 (08:51→20:28)
[2021-11-16] MEDS: GABAPENTIN 300 MG CAPSULE. PO SCH ×3 (08:51→20:29)
[2021-11-16] MEDS: cycloSPORINE 0.05% OPTH 1 DROP DROPERETTE OU SCH ×2 (08:52→20:29)
[2021-11-16] MEDS: ACETAMINOPHEN 325 MG TABLET PO PRN (10:41)
[2021-11-16 15:38] VITALS: BP 150/88
[2021-11-16] MEDS: traZODone 100 MG TABLET. PO SCH (20:29)
[2021-11-16] MEDS: MELATONIN 3 MG TABLET PO SCH (20:29)
--- NOTE | 2021-11-16 21:57 | PDOC ---
Exam Note: Elliott Note: Please also refer to the separate dictated note~for this date of service dictated separately.~Patient seen individually. Discussed the patient with Nursing staff reviewed the chart.~Reviewed interim history and current functioning. Reviewed vital signs,~Labs/ Radiology~and current medications noted below. Continue current treatment with the changes noted in the dictated addendum note Assessment: Vital Signs/I&O: Vital Signs Date Time Temp Pulse Resp B/P (MAP) Pulse Ox O2 Delivery O2 Flow Rate FiO2 11/16/21 15:38 97.6 72 18 150/88 (108) 96 11/16/21 06:18 Room Air I & O 11/15/21 11/15/21 11/16/21 15:00 23:00 07:00 Intake Total 600 ml 480 ml Balance 600 ml 480 ml Current Medications: Meds: Current Medications Medications (Trade) Dose Ordered Sig/Jean Route PRN Reason Start Time Stop Time Status Last Admin Dose Admin Acetaminophen (Tylenol) 650 mg PRN Q6HRS PRN PO MILD PAIN / TEMP > 100.3'F 11/08/21 20:30 11/16/21 10:41 Multi-Ingredient Ointment (Analgesic [place]) 1 alton PRN QID PRN TP MUSCLE PAIN 11/08/21 20:30 Al Hydroxide/Mg Hydroxide (Mylanta Plus Xs) 15 ml PRN AFTMEALHC PRN PO 2ND CHOICE DYSPEPSIA 11/08/21 20:30 Magnesium Hydroxide (Milk Of Magnesia) 2,400 mg PRN QHS PRN PO CONSTIPATION 11/08/21 20:30 Cyclosporine (Restasis) 1 drop BID OU 11/08/21 21:00 11/16/21 20:29 Gabapentin (Neurontin) 300 mg TID PO 11/08/21 21:00 11/16/21 20:29 Levothyroxine Sodium (Synthroid) 50 mcg DAILY06 PO 11/09/21 06:00 11/16/21 05:40 Tizanidine HCl (Zanaflex) 2 mg PRN Q8HRS PRN PO MUSCLE SPASMS 11/08/21 20:45 Aripiprazole (Abilify) 5 mg DAILY PO 11/09/21 09:00 11/10/21 20:32 DC 11/10/21 09:14 Divalproex Sodium (Depakote Er) 500 mg AFTRNOON PO 11/09/21 13:00 11/16/21 12:16 Divalproex Sodium (Depakote Er) 500 mg BID PO 11/08/21 21:00 11/16/21 20:28 Trazodone HCl (Desyrel) 100 mg QHS PO 11/08/21 21:00 11/16/21 20:29 Non-Formulary Medication (Iloperidone (Fanapt)) 6 mg BID PO 11/08/21 21:00 11/16/21 20:28 Melatonin (Melatonin) 6 mg QHS PO 11/09/21 21:00 11/16/21 20:29 Acetaminophen/ Codeine Phosphate (Tylenol #3) 1 tab PRN Q6HRS PRN PO MOD-SEV PAIN 11/08/21 21:00 11/12/21 08:13 Calcium Carbonate/ Glycine (Tums) 1,000 mg PRN Q4HRS PRN PO 1ST CHOICE INDIGESTION 11/08/21 21:15 11/09/21 08:38 Olanzapine (ZyPREXA ZYDIS) 2.5 mg PRN Q2HR PRN PO PSYCHOSIS 11/09/21 08:30 Aripiprazole (Abilify) 10 mg DAILY PO 11/11/21 09:00 11/16/21 08:51 Nicotine (Nicoderm Cq 14mg Patch) 1 patch DAILY TD 11/11/21 09:00 11/14/21 17:42 DC 11/14/21 08:22 Nicotine Polacrilex (Nicorette Gum) 2 mg PRN Q2HRS PRN BC SMOKING CESSATION 11/14/21 17:45 I have reviewed the current psychotropics carefully including drug interactions. Risk benefit ratio favors no change other than as noted in my dictated progress note. Diagnosis: Problems: (1) Schizoaffective disorder, bipolar type (2) Impulse control disorder, unspecified (3) Anxiety disorder, unspecified LILY SANDERS MD Nov 16, 2021 21:57
[2021-11-17] MEDS: LEVOTHYROXINE 50 MCG TABLET PO SCH (05:23)
[2021-11-17 05:54] VITALS: BP 123/81
[2021-11-17 08:07] LABS: BASO % 1 % (0-3); EOS # 0.2 x10^3/uL (0.0-0.7); EOS % 3 % (0-3); HEMATOCRIT 39.3 % (39.0-53.0); LYMPH # 1.3 x10^3/uL (1.0-4.8); LYMPH % 22 % (24-48); MEAN CORPUSCULAR HEMOGLOBIN 31 pg (25-35); MEAN CORPUSCULAR HGB CONC 36 g/dL (31-37); MEAN CORPUSCULAR VOLUME 86 fL (79-100); MONO # 0.8 x10^3/uL (0.0-1.1); MONO % 13 % (0-9); NEUT # 3.7 x10^3uL (1.8-7.7); NEUT % 61 % (31-73); PLATELET COUNT 179 x10^3/uL (140-400); RED BLOOD COUNT 4.59 x10^6/uL (4.30-5.70); RED CELL DISTRIBUTION WIDTH 13.6 % (11.5-14.5)
[2021-11-17] MEDS: cycloSPORINE 0.05% OPTH 1 DROP DROPERETTE OU SCH ×2 (08:13→19:50)
[2021-11-17] MEDS: DIVALPROEX ER 500 MG TAB.ER.24H PO SCH ×3 (08:14→19:51)
[2021-11-17] MEDS: GABAPENTIN 300 MG CAPSULE. PO SCH ×3 (08:14→19:50)
[2021-11-17] MEDS: ARIPiprazole 10 MG TABLET PO SCH (08:14)
[2021-11-17 08:20] LABS: ALBUMIN 3.3 g/dL (3.4-5.0); ALBUMIN/GLOBULIN RATIO 1.1 (1.0-1.7); CALCIUM 8.5 mg/dL (8.5-10.1); CREATININE 0.7 mg/dL (0.7-1.3); GFR 113.9; TOTAL BILIRUBIN 0.3 mg/dL (0.2-1.0); TOTAL PROTEIN 6.3 g/dL (6.4-8.2)
[2021-11-17 15:27] VITALS: BP 137/87
[2021-11-17] MEDS: traZODone 100 MG TABLET. PO SCH (19:50)
[2021-11-17] MEDS: MELATONIN 3 MG TABLET PO SCH (19:51)
[2021-11-17] MEDS: HYDROCORTISONE 1% LOTION BOTTLE. TP SCH (19:52)
--- NOTE | 2021-11-17 22:23 | PDOC ---
Exam Note: Elliott Note: Please also refer to the separate dictated note~for this date of service dictated separately.~Patient seen individually. Discussed the patient with Nursing staff reviewed the chart.~Reviewed interim history and current functioning. Reviewed vital signs,~Labs/ Radiology~and current medications noted below. Continue current treatment with the changes noted in the dictated addendum note Assessment: Vital Signs/I&O: Vital Signs Date Time Temp Pulse Resp B/P (MAP) Pulse Ox O2 Delivery O2 Flow Rate FiO2 11/17/21 15:27 98.3 88 18 137/87 (104) 97 11/16/21 06:18 Room Air I & O 11/16/21 11/16/21 11/17/21 15:00 23:00 07:00 Intake Total 480 ml 900 ml Balance 480 ml 900 ml Labs: Laboratory Tests Test 11/17/21 07:35 White Blood Count 6.0 x10^3/uL (4.0-11.0) Red Blood Count 4.59 x10^6/uL (4.30-5.70) Hemoglobin 14.0 g/dL (13.0-17.5) Hematocrit 39.3 % (39.0-53.0) Mean Corpuscular Volume 86 fL (79-100) Mean Corpuscular Hemoglobin 31 pg (25-35) Mean Corpuscular Hemoglobin Concent 36 g/dL (31-37) Red Cell Distribution Width 13.6 % (11.5-14.5) Platelet Count 179 x10^3/uL (140-400) Neutrophils (%) (Auto) 61 % (31-73) Lymphocytes (%) (Auto) 22 % (24-48) L Monocytes (%) (Auto) 13 % (0-9) H Eosinophils (%) (Auto) 3 % (0-3) Basophils (%) (Auto) 1 % (0-3) Neutrophils # (Auto) 3.7 x10^3uL (1.8-7.7) Lymphocytes # (Auto) 1.3 x10^3/uL (1.0-4.8) Monocytes # (Auto) 0.8 x10^3/uL (0.0-1.1) Eosinophils # (Auto) 0.2 x10^3/uL (0.0-0.7) Basophils # (Auto) 0.0 x10^3/uL (0.0-0.2) Sodium Level 132 mmol/L (136-145) L Potassium Level 4.0 mmol/L (3.5-5.1) Chloride Level 98 mmol/L (98-107) Carbon Dioxide Level 29 mmol/L (21-32) Anion Gap 5 (6-14) L Blood Urea Nitrogen 10 mg/dL (8-26) Creatinine 0.7 mg/dL (0.7-1.3) Estimated GFR (Cockcroft-Gault) 113.9 BUN/Creatinine Ratio 14 (6-20) Glucose Level 96 mg/dL (70-99) Calcium Level 8.5 mg/dL (8.5-10.1) Total Bilirubin 0.3 mg/dL (0.2-1.0) Aspartate Amino Transferase (AST) 13 U/L (15-37) L Alanine Aminotransferase (ALT) 33 U/L (16-63) Alkaline Phosphatase 43 U/L (46-116) L Total Protein 6.3 g/dL (6.4-8.2) L Albumin 3.3 g/dL (3.4-5.0) L Albumin/Globulin Ratio 1.1 (1.0-1.7) Current Medications: Meds: Laboratory Tests Test 11/17/21 07:35 White Blood Count 6.0 x10^3/uL Red Blood Count 4.59 x10^6/uL Hemoglobin 14.0 g/dL Hematocrit 39.3 % Mean Corpuscular Volume 86 fL Mean Corpuscular Hemoglobin 31 pg Mean Corpuscular Hemoglobin Concent 36 g/dL Red Cell Distribution Width 13.6 % Platelet Count 179 x10^3/uL Neutrophils (%) (Auto) 61 % Lymphocytes (%) (Auto) 22 % Monocytes (%) (Auto) 13 % Eosinophils (%) (Auto) 3 % Basophils (%) (Auto) 1 % Neutrophils # (Auto) 3.7 x10^3uL Lymphocytes # (Auto) 1.3 x10^3/uL Monocytes # (Auto) 0.8 x10^3/uL Eosinophils # (Auto) 0.2 x10^3/uL Basophils # (Auto) 0.0 x10^3/uL Sodium Level 132 mmol/L Potassium Level 4.0 mmol/L Chloride Level 98 mmol/L Carbon Dioxide Level 29 mmol/L Anion Gap 5 Blood Urea Nitrogen 10 mg/dL Creatinine 0.7 mg/dL Estimated GFR (Cockcroft-Gault) 113.9 BUN/Creatinine Ratio 14 Glucose Level 96 mg/dL Calcium Level 8.5 mg/dL Total Bilirubin 0.3 mg/dL Aspartate Amino Transf (AST/SGOT) 13 U/L Alanine Aminotransferase (ALT/SGPT) 33 U/L Alkaline Phosphatase 43 U/L Total Protein 6.3 g/dL Albumin 3.3 g/dL Albumin/Globulin Ratio 1.1 Current Medications Medications (Trade) Dose Ordered Sig/Jean Route PRN Reason Start Time Stop Time Status Last Admin Dose Admin Acetaminophen (Tylenol) 650 mg PRN Q6HRS PRN PO MILD PAIN / TEMP > 100.3'F 11/08/21 20:30 11/16/21 10:41 Multi-Ingredient Ointment (Analgesic [place]) 1 alton PRN QID PRN TP MUSCLE PAIN 11/08/21 20:30 Al Hydroxide/Mg Hydroxide (Mylanta Plus Xs) 15 ml PRN AFTMEALHC PRN PO 2ND CHOICE DYSPEPSIA 11/08/21 20:30 Magnesium Hydroxide (Milk Of Magnesia) 2,400 mg PRN QHS PRN PO CONSTIPATION 11/08/21 20:30 Cyclosporine (Restasis) 1 drop BID OU 11/08/21 21:00 11/17/21 19:50 Gabapentin (Neurontin) 300 mg TID PO 11/08/21 21:00 11/17/21 19:50 Levothyroxine Sodium (Synthroid) 50 mcg DAILY06 PO 11/09/21 06:00 11/17/21 05:23 Tizanidine HCl (Zanaflex) 2 mg PRN Q8HRS PRN PO MUSCLE SPASMS 11/08/21 20:45 Aripiprazole (Abilify) 5 mg DAILY PO 11/09/21 09:00 11/10/21 20:32 DC 11/10/21 09:14 Divalproex Sodium (Depakote Er) 500 mg AFTRNOON PO 11/09/21 13:00 11/17/21 13:00 Divalproex Sodium (Depakote Er) 500 mg BID PO 11/08/21 21:00 11/17/21 19:51 Trazodone HCl (Desyrel) 100 mg QHS PO 11/08/21 21:00 11/17/21 19:50 Non-Formulary Medication (Iloperidone (Fanapt)) 6 mg BID PO 11/08/21 21:00 11/17/21 19:51 Melatonin (Melatonin) 6 mg QHS PO 11/09/21 21:00 11/17/21 19:51 Acetaminophen/ Codeine Phosphate (Tylenol #3) 1 tab PRN Q6HRS PRN PO MOD-SEV PAIN 11/08/21 21:00 11/12/21 08:13 Calcium Carbonate/ Glycine (Tums) 1,000 mg PRN Q4HRS PRN PO 1ST CHOICE INDIGESTION 11/08/21 21:15 11/09/21 08:38 Olanzapine (ZyPREXA ZYDIS) 2.5 mg PRN Q2HR PRN PO PSYCHOSIS 11/09/21 08:30 Aripiprazole (Abilify) 10 mg DAILY PO 11/11/21 09:00 11/17/21 08:14 Nicotine (Nicoderm Cq 14mg Patch) 1 patch DAILY TD 11/11/21 09:00 11/14/21 17:42 DC 11/14/21 08:22 Nicotine Polacrilex (Nicorette Gum) 2 mg PRN Q2HRS PRN BC SMOKING CESSATION 11/14/21 17:45 Hydrocortisone (Cortizone-10) 1 alton TID TP 11/17/21 21:00 I have reviewed the current psychotropics carefully including drug interactions. Risk benefit ratio favors no change other than as noted in my dictated progress note. Diagnosis: Problems: (1) Schizoaffective disorder (2) Schizoaffective disorder, bipolar type (3) Impulse control disorder, unspecified (4) Anxiety disorder, unspecified LILY SANDERS MD Nov 17, 2021 22:23
[2021-11-18] MEDS: LEVOTHYROXINE 50 MCG TABLET PO SCH (05:18)
[2021-11-18 06:08] VITALS: BP 119/78
[2021-11-18] MEDS: DIVALPROEX ER 500 MG TAB.ER.24H PO SCH ×3 (08:05→20:33)
[2021-11-18] MEDS: ARIPiprazole 10 MG TABLET PO SCH (08:05)
[2021-11-18] MEDS: GABAPENTIN 300 MG CAPSULE. PO SCH ×3 (08:05→20:33)
[2021-11-18] MEDS: cycloSPORINE 0.05% OPTH 1 DROP DROPERETTE OU SCH ×2 (08:05→20:33)
--- NOTE | 2021-11-18 08:46 | PDOC ---
Exam Note: Elliott Note: This note is a late entry for 11/14/2021 covers elements not covered in my initial note. Subjective: The patient was seen individually on 11/14/2021, discussed and reviewed the chart with Carlie FOX. The patient slept 8 hours previous night. He is not noted to be delusional. I met with him in his room. Review of Systems: No CV, , pulmonary, eye system symptoms on review. Mental Status Exam: The patient is reasonably oriented. He is pleasant, verbal, interactive, has a sense of humor. Speech is coherent. Abstraction fair. Computation impaired. Language function intact. Attention span short. Mood and affect anxious, less labile. Laboratory Data: Reviewed. Impression: Schizoaffective disorder, bipolar type, mixed with psychotic features. Anxiety disorder unspecified. Impulse control disorder unspecified. Plan: Continue current psychotropics. Assessment: Vital Signs/I&O: Vital Signs Date Time Temp Pulse Resp B/P (MAP) Pulse Ox O2 Delivery O2 Flow Rate FiO2 11/18/21 06:08 98.5 66 16 119/78 (92) 95 Room Air I & O 11/17/21 11/17/21 11/18/21 15:00 23:00 07:00 Intake Total 780 ml 520 ml Balance 780 ml 520 ml Current Medications: I have reviewed the current psychotropics carefully including drug interactions. Risk benefit ratio favors no change other than as noted in my dictated progress note. Diagnosis: Problems: (1) Schizoaffective disorder, bipolar type (2) Impulse control disorder, unspecified (3) Anxiety disorder, unspecified LILY SANDERS MD Nov 18, 2021 08:46
[2021-11-18] MEDS: HYDROCORTISONE 1% LOTION BOTTLE. TP SCH ×3 (09:00→20:34)
--- NOTE | 2021-11-18 09:13 | PDOC ---
Exam Note: Elliott Note: This note is a late entry for 11/15/2021 covers elements not covered in my initial note. Subjective: The patient was seen individually on 11/15/2021, discussed and reviewed the chart with Carlie FOX. The patient slept 8 hours previous night. Overall he is doing well though at times per nursing report he makes a bizarre comment with no connection to the conversation at hand. I met with him in his room. Review of Systems: No CV, , pulmonary, eye system symptoms on review. Mental Status Exam: The patient is reasonably oriented. Speech is coherent. Abstraction fair. Computation impaired. Language function intact. Mood and affect still somewhat anxious, labile but improved. Laboratory Data: Reviewed. Impression: Schizoaffective disorder, bipolar type, mixed with psychotic features. Anxiety disorder unspecified. Impulse control disorder unspecified. Plan: Continue current psychotropics. The patients valproic acid level is therapeutic at 83. Maintain Abilify, Depakote, Fanapt, gabapentin, trazodone, and melatonin p.r.n. Adjust further as clinically indicated. Assessment: Vital Signs/I&O: Vital Signs Date Time Temp Pulse Resp B/P (MAP) Pulse Ox O2 Delivery O2 Flow Rate FiO2 11/18/21 06:08 98.5 66 16 119/78 (92) 95 Room Air I & O 11/17/21 11/17/21 11/18/21 14:59 22:59 06:59 Intake Total 780 ml 520 ml Balance 780 ml 520 ml Current Medications: I have reviewed the current psychotropics carefully including drug interactions. Risk benefit ratio favors no change other than as noted in my dictated progress note. Diagnosis: Problems: (1) Schizoaffective disorder (2) Schizoaffective disorder, bipolar type (3) Impulse control disorder, unspecified (4) Anxiety disorder, unspecified LILY SANDERS MD Nov 18, 2021 09:13
--- NOTE | 2021-11-18 09:23 | PDOC ---
Exam Note: Elliott Note: This note is a late entry for 11/16/2021 covers elements not covered in my initial note. Subjective: The patient was seen individually on 11/16/2021, discussed and reviewed the chart with Ganesh FOX. The patient slept 8 hours previous night. He has been fairly pleasant and keeps to himself. I met with him in his room. Review of Systems: No CV, , pulmonary, eye system symptoms on review. Mental Status Exam: The patient is reasonably oriented. Speech is coherent. Abstraction fair. Computation impaired. Language function intact. Attention span short. Mood and affect anxious. Laboratory Data: Reviewed. Impression: Schizoaffective disorder, bipolar type, mixed with psychotic features. Anxiety disorder unspecified. Impulse control disorder unspecified. Plan: Continue current psychotropics. Assessment: Vital Signs/I&O: Vital Signs Date Time Temp Pulse Resp B/P (MAP) Pulse Ox O2 Delivery O2 Flow Rate FiO2 11/18/21 06:08 98.5 66 16 119/78 (92) 95 Room Air I & O 11/17/21 11/17/21 11/18/21 15:00 23:00 07:00 Intake Total 780 ml 520 ml Balance 780 ml 520 ml Current Medications: I have reviewed the current psychotropics carefully including drug interactions. Risk benefit ratio favors no change other than as noted in my dictated progress note. Diagnosis: Problems: (1) Schizoaffective disorder (2) Schizoaffective disorder, bipolar type (3) Impulse control disorder, unspecified (4) Anxiety disorder, unspecified LILY SANDERS MD Nov 18, 2021 09:23
--- NOTE | 2021-11-18 09:32 | PDOC ---
Exam Note: Elliott Note: This note is a late entry for 11/17/2021 covers elements not covered in my initial note. Subjective: The patient was seen individually on 11/17/2021, discussed and reviewed the chart with Carlie FOX. The patient slept 8 hours previous night. At times per nursing report, the patient makes bizarre statements, unconnected to the situation, slightly demanding with nursing staff. He is compliant with medications. As I met with him he complained of rash on his right upper thigh and a possible ganglion cyst right hand. I will defer to Dr. Crespo. We will use Cortaid 1% cream p.r.n. for his rash for now till Dr. Crespo assesses him. Review of Systems: No CV, , pulmonary, eye system symptoms on review. Mental Status Exam: The patient is reasonably oriented. Speech is coherent. Abstraction fair. Computation impaired. Language function intact. Attention span fair. Mood and affect improved. Laboratory Data: Reviewed. Impression: Schizoaffective disorder, bipolar type, mixed with psychotic features. Anxiety disorder unspecified. Impulse control disorder unspecified. Plan: The patient continued Depakote level, therapeutic at 83, Abilify 10 mg a day, Fanapt 6 mg twice a day, gabapentin, trazodone, melatonin will leave unchanged. Assessment: Vital Signs/I&O: Vital Signs Date Time Temp Pulse Resp B/P (MAP) Pulse Ox O2 Delivery O2 Flow Rate FiO2 11/18/21 06:08 98.5 66 16 119/78 (92) 95 Room Air I & O 11/17/21 11/17/21 11/18/21 15:00 23:00 07:00 Intake Total 780 ml 520 ml Balance 780 ml 520 ml Current Medications: I have reviewed the current psychotropics carefully including drug interactions. Risk benefit ratio favors no change other than as noted in my dictated progress note. Diagnosis: Problems: (1) Schizoaffective disorder, bipolar type (2) Impulse control disorder, unspecified (3) Anxiety disorder, unspecified LILY SANDERS MD Nov 18, 2021 09:32
[2021-11-18 15:54] VITALS: BP 124/75
[2021-11-18] MEDS: traZODone 100 MG TABLET. PO SCH (20:33)
[2021-11-18] MEDS: MELATONIN 3 MG TABLET PO SCH (20:33)
[2021-11-18] MEDS: ACETAMINOPHEN 325 MG TABLET PO PRN (20:39)
--- NOTE | 2021-11-18 21:57 | PDOC ---
Exam Note: [place] Note: Please also refer to the separate dictated note~for this date of service dictated separately.~Patient seen individually. Discussed the patient with Nursing staff reviewed the chart.~Reviewed interim history and current functioning. Reviewed vital signs,~Labs/ Radiology~and current medications noted below. Continue current treatment with the changes noted in the dictated addendum note Assessment: Vital Signs/I&O: Vital Signs Date Time Temp Pulse Resp B/P (MAP) Pulse Ox O2 Delivery O2 Flow Rate FiO2 11/18/21 15:54 98.5 89 18 124/75 (91) 97 Room Air I & O 11/17/21 11/17/21 11/18/21 15:00 23:00 07:00 Intake Total 780 ml 520 ml Balance 780 ml 520 ml Current Medications: Meds: Current Medications Medications (Trade) Dose Ordered Sig/Jean Route PRN Reason Start Time Stop Time Status Last Admin Dose Admin Acetaminophen (Tylenol) 650 mg PRN Q6HRS PRN PO MILD PAIN / TEMP > 100.3'F 11/08/21 20:30 11/18/21 20:39 Multi-Ingredient Ointment (Analgesic [place]) 1 alton PRN QID PRN TP MUSCLE PAIN 11/08/21 20:30 Al Hydroxide/Mg Hydroxide (Mylanta Plus Xs) 15 ml PRN AFTMEALHC PRN PO 2ND CHOICE DYSPEPSIA 11/08/21 20:30 Magnesium Hydroxide (Milk Of Magnesia) 2,400 mg PRN QHS PRN PO CONSTIPATION 11/08/21 20:30 Cyclosporine (Restasis) 1 drop BID OU 11/08/21 21:00 11/18/21 20:33 Gabapentin (Neurontin) 300 mg TID PO 11/08/21 21:00 11/18/21 20:33 Levothyroxine Sodium (Synthroid) 50 mcg DAILY06 PO 11/09/21 06:00 11/18/21 05:18 Tizanidine HCl (Zanaflex) 2 mg PRN Q8HRS PRN PO MUSCLE SPASMS 11/08/21 20:45 Aripiprazole (Abilify) 5 mg DAILY PO 11/09/21 09:00 11/10/21 20:32 DC 11/10/21 09:14 Divalproex Sodium (Depakote Er) 500 mg AFTRNOON PO 11/09/21 13:00 11/18/21 13:19 Divalproex Sodium (Depakote Er) 500 mg BID PO 11/08/21 21:00 11/18/21 20:33 Trazodone HCl (Desyrel) 100 mg QHS PO 11/08/21 21:00 11/18/21 20:33 Non-Formulary Medication (Iloperidone (Fanapt)) 6 mg BID PO 11/08/21 21:00 11/18/21 20:34 Melatonin (Melatonin) 6 mg QHS PO 11/09/21 21:00 11/18/21 20:33 Acetaminophen/ Codeine Phosphate (Tylenol #3) 1 tab PRN Q6HRS PRN PO MOD-SEV PAIN 11/08/21 21:00 11/12/21 08:13 Calcium Carbonate/ Glycine (Tums) 1,000 mg PRN Q4HRS PRN PO 1ST CHOICE INDIGESTION 11/08/21 21:15 11/09/21 08:38 Olanzapine (ZyPREXA ZYDIS) 2.5 mg PRN Q2HR PRN PO PSYCHOSIS 11/09/21 08:30 Aripiprazole (Abilify) 10 mg DAILY PO 11/11/21 09:00 11/18/21 08:05 Nicotine (Nicoderm Cq 14mg Patch) 1 patch DAILY TD 11/11/21 09:00 11/14/21 17:42 DC 11/14/21 08:22 Nicotine Polacrilex (Nicorette Gum) 2 mg PRN Q2HRS PRN BC SMOKING CESSATION 11/14/21 17:45 Hydrocortisone (Cortizone-10) 1 alton TID TP 11/17/21 21:00 11/18/21 20:34 I have reviewed the current psychotropics carefully including drug interactions. Risk benefit ratio favors no change other than as noted in my dictated progress note. Diagnosis: Problems: (1) Schizoaffective disorder, bipolar type (2) Impulse control disorder, unspecified (3) Anxiety disorder, unspecified LILY SANDERS MD Nov 18, 2021 21:57
[2021-11-19] MEDS: LEVOTHYROXINE 50 MCG TABLET PO SCH (06:08)
[2021-11-19 06:12] VITALS: BP 107/70
[2021-11-19] MEDS: cycloSPORINE 0.05% OPTH 1 DROP DROPERETTE OU SCH ×2 (08:25→20:03)
[2021-11-19] MEDS: DIVALPROEX ER 500 MG TAB.ER.24H PO SCH ×3 (08:25→20:04)
[2021-11-19] MEDS: HYDROCORTISONE 1% LOTION BOTTLE. TP SCH ×3 (08:26→20:10)
[2021-11-19] MEDS: GABAPENTIN 300 MG CAPSULE. PO SCH ×3 (08:26→20:09)
[2021-11-19] MEDS: ARIPiprazole 10 MG TABLET PO SCH (08:26)
[2021-11-19] MEDS: ACETAMINOPHEN 325 MG TABLET PO PRN (09:28)
[2021-11-19 16:04] VITALS: BP 119/78
[2021-11-19] MEDS: traZODone 100 MG TABLET. PO SCH (20:03)
[2021-11-19] MEDS: MELATONIN 3 MG TABLET PO SCH (20:06)
--- NOTE | 2021-11-19 21:24 | PDOC ---
Exam Note: Elliott Note: Please also refer to the separate dictated note~for this date of service dictated separately.~Patient seen individually. Discussed the patient with Nursing staff reviewed the chart.~Reviewed interim history and current functioning. Reviewed vital signs,~Labs/ Radiology~and current medications noted below. Continue current treatment with the changes noted in the dictated addendum note Assessment: Vital Signs/I&O: Vital Signs Date Time Temp Pulse Resp B/P (MAP) Pulse Ox O2 Delivery O2 Flow Rate FiO2 11/19/21 16:04 98.7 80 16 119/78 (92) 96 Room Air I & O 11/18/21 11/18/21 11/19/21 15:00 23:00 07:00 Intake Total 720 ml 480 ml Balance 720 ml 480 ml Current Medications: Meds: Current Medications Medications (Trade) Dose Ordered Sig/Jean Route PRN Reason Start Time Stop Time Status Last Admin Dose Admin Acetaminophen (Tylenol) 650 mg PRN Q6HRS PRN PO MILD PAIN / TEMP > 100.3'F 11/08/21 20:30 11/19/21 09:28 Multi-Ingredient Ointment (Analgesic [place]) 1 alton PRN QID PRN TP MUSCLE PAIN 11/08/21 20:30 Al Hydroxide/Mg Hydroxide (Mylanta Plus Xs) 15 ml PRN AFTMEALHC PRN PO 2ND CHOICE DYSPEPSIA 11/08/21 20:30 Magnesium Hydroxide (Milk Of Magnesia) 2,400 mg PRN QHS PRN PO CONSTIPATION 11/08/21 20:30 Cyclosporine (Restasis) 1 drop BID OU 11/08/21 21:00 11/19/21 20:03 Gabapentin (Neurontin) 300 mg TID PO 11/08/21 21:00 11/19/21 20:09 Levothyroxine Sodium (Synthroid) 50 mcg DAILY06 PO 11/09/21 06:00 11/19/21 06:08 Tizanidine HCl (Zanaflex) 2 mg PRN Q8HRS PRN PO MUSCLE SPASMS 11/08/21 20:45 Aripiprazole (Abilify) 5 mg DAILY PO 11/09/21 09:00 11/10/21 20:32 DC 11/10/21 09:14 Divalproex Sodium (Depakote Er) 500 mg AFTRNOON PO 11/09/21 13:00 11/19/21 13:10 Divalproex Sodium (Depakote Er) 500 mg BID PO 11/08/21 21:00 11/19/21 20:04 Trazodone HCl (Desyrel) 100 mg QHS PO 11/08/21 21:00 11/19/21 20:03 Non-Formulary Medication (Iloperidone (Fanapt)) 6 mg BID PO 11/08/21 21:00 11/19/21 20:04 Melatonin (Melatonin) 6 mg QHS PO 11/09/21 21:00 11/19/21 20:06 Acetaminophen/ Codeine Phosphate (Tylenol #3) 1 tab PRN Q6HRS PRN PO MOD-SEV PAIN 11/08/21 21:00 11/12/21 08:13 Calcium Carbonate/ Glycine (Tums) 1,000 mg PRN Q4HRS PRN PO 1ST CHOICE INDIGESTION 11/08/21 21:15 11/09/21 08:38 Olanzapine (ZyPREXA ZYDIS) 2.5 mg PRN Q2HR PRN PO PSYCHOSIS 11/09/21 08:30 Aripiprazole (Abilify) 10 mg DAILY PO 11/11/21 09:00 11/19/21 08:26 Nicotine (Nicoderm Cq 14mg Patch) 1 patch DAILY TD 11/11/21 09:00 11/14/21 17:42 DC 11/14/21 08:22 Nicotine Polacrilex (Nicorette Gum) 2 mg PRN Q2HRS PRN BC SMOKING CESSATION 11/14/21 17:45 Hydrocortisone (Cortizone-10) 1 alton TID TP 11/17/21 21:00 11/19/21 20:10 I have reviewed the current psychotropics carefully including drug interactions. Risk benefit ratio favors no change other than as noted in my dictated progress note. Diagnosis: Problems: (1) Schizoaffective disorder, bipolar type (2) Impulse control disorder, unspecified (3) Anxiety disorder, unspecified LILY SANDERS MD Nov 19, 2021 21:24
[2021-11-20] MEDS: LEVOTHYROXINE 50 MCG TABLET PO SCH (05:46)
[2021-11-20 06:14] VITALS: BP 127/84
--- NOTE | 2021-11-20 07:07 | PDOC ---
Exam Note: Elliott Note: This note is a late entry for 11/18/2021 covers elements not covered in my initial note. Subjective: The patient was reviewed at treatment team meeting in the morning on 11/18/2021 with Tiffanie Alvarez, Camila Salamanca, and Sarah Looney (psychotherapist social worker), [place], activity therapy, and Rachel FOX, discussed and reviewed the chart. Discussed and reviewed his progress, diagnoses, current psychotropic medications, discharge plans for later this week. The patient slept 8 hours previous night. Appetite is 75%. He attended 6 groups. Per nursing report, the patient is social and pleasant. He does complain of some itching on the right thigh and he is getting Cortaid ointment with relief for this. Rest follow up defer to Dr. Crespo. Review of Systems: No CV, , pulmonary, eye system symptoms on review. Mental Status Exam: The patient is reasonably oriented. I met with him in his room. He is verbal, interactive, quite pleasant. Speech is coherent. Abstraction fair. Computation impaired. Language function intact. Attention span fair. Mood appears euthymic. No psychotic symptoms, suicidal or homicidal ideation. He is fairly attentive. Laboratory Data: Reviewed. Impression: Schizoaffective disorder, bipolar type, mixed with psychotic features. Anxiety disorder unspecified. Impulse control disorder unspecified. Plan: Continue current psychotropics. Adjust further as clinically indicated. Assessment: Vital Signs/I&O: Vital Signs Date Time Temp Pulse Resp B/P (MAP) Pulse Ox O2 Delivery O2 Flow Rate FiO2 11/20/21 06:14 97.8 73 16 127/84 (98) 95 11/19/21 16:04 Room Air I & O 11/19/21 11/19/21 11/20/21 15:00 23:00 07:00 Intake Total 840 ml 240 ml 120 ml Balance 840 ml 240 ml 120 ml Current Medications: I have reviewed the current psychotropics carefully including drug interactions. Risk benefit ratio favors no change other than as noted in my dictated progress note. Diagnosis: Problems: (1) Schizoaffective disorder, bipolar type (2) Impulse control disorder, unspecified (3) Anxiety disorder, unspecified LILY SANDERS MD Nov 20, 2021 07:07
--- NOTE | 2021-11-20 07:16 | PDOC ---
Exam Note: Elliott Note: This note is a late entry for 11/19/2021 covers elements not covered in my initial note. Subjective: The patient was seen individually on 11/19/2021, discussed and reviewed the chart with Rachel FOX. The patient slept 8-1/4 hours previous night. Overall he is doing reasonably well. I met with him in his room. He still has some rash on the right upper thigh but states it is much better. Cortaid 1% has been helping. Review of Systems: No CV, , pulmonary, eye system symptoms on review. Mental Status Exam: The patient is reasonably oriented. Speech is coherent. Abstraction fair. Computation impaired. Language function intact. Attention span fair. Mood and affect improved. Laboratory Data: Reviewed. Impression: Schizoaffective disorder, bipolar type, mixed with psychotic features. Anxiety disorder unspecified. Impulse control disorder unspecified. Plan: Continue current psychotropics. Adjust further as clinically indicated. Assessment: Vital Signs/I&O: Vital Signs Date Time Temp Pulse Resp B/P (MAP) Pulse Ox O2 Delivery O2 Flow Rate FiO2 11/20/21 06:14 97.8 73 16 127/84 (98) 95 11/19/21 16:04 Room Air I & O 11/19/21 11/19/21 11/20/21 15:00 23:00 07:00 Intake Total 840 ml 240 ml 120 ml Balance 840 ml 240 ml 120 ml Current Medications: I have reviewed the current psychotropics carefully including drug interactions. Risk benefit ratio favors no change other than as noted in my dictated progress note. Diagnosis: Problems: (1) Schizoaffective disorder, bipolar type (2) Impulse control disorder, unspecified (3) Anxiety disorder, unspecified LILY SANDERS MD Nov 20, 2021 07:16
[2021-11-20] MEDS: ARIPiprazole 10 MG TABLET PO SCH (08:25)
[2021-11-20] MEDS: GABAPENTIN 300 MG CAPSULE. PO SCH ×3 (08:25→20:12)
[2021-11-20] MEDS: DIVALPROEX ER 500 MG TAB.ER.24H PO SCH ×3 (08:26→20:13)
[2021-11-20] MEDS: cycloSPORINE 0.05% OPTH 1 DROP DROPERETTE OU SCH ×2 (08:26→20:12)
[2021-11-20] MEDS: HYDROCORTISONE 1% LOTION BOTTLE. TP SCH ×3 (09:00→20:13)
[2021-11-20 15:40] VITALS: BP 141/85
[2021-11-20] MEDS: ACETAMINOPHEN 325 MG TABLET PO PRN (18:11)
[2021-11-20] MEDS: traZODone 100 MG TABLET. PO SCH (20:12)
[2021-11-20] MEDS: MELATONIN 3 MG TABLET PO SCH (20:13)
--- NOTE | 2021-11-20 22:12 | PDOC ---
Exam Note: Elliott Note: Please also refer to the separate dictated note~for this date of service dictated separately.~Patient seen individually. Discussed the patient with Nursing staff reviewed the chart.~Reviewed interim history and current functioning. Reviewed vital signs,~Labs/ Radiology~and current medications noted below. Continue current treatment with the changes noted in the dictated addendum note Assessment: Vital Signs/I&O: Vital Signs Date Time Temp Pulse Resp B/P (MAP) Pulse Ox O2 Delivery O2 Flow Rate FiO2 11/20/21 15:40 98.2 79 19 141/85 (103) 94 11/19/21 16:04 Room Air I & O 11/19/21 11/19/21 11/20/21 14:59 22:59 06:59 Intake Total 840 ml 240 ml 120 ml Balance 840 ml 240 ml 120 ml Current Medications: Meds: Current Medications Medications (Trade) Dose Ordered Sig/Jean Route PRN Reason Start Time Stop Time Status Last Admin Dose Admin Acetaminophen (Tylenol) 650 mg PRN Q6HRS PRN PO MILD PAIN / TEMP > 100.3'F 11/08/21 20:30 11/20/21 18:11 Multi-Ingredient Ointment (Analgesic [place]) 1 alton PRN QID PRN TP MUSCLE PAIN 11/08/21 20:30 Al Hydroxide/Mg Hydroxide (Mylanta Plus Xs) 15 ml PRN AFTMEALHC PRN PO 2ND CHOICE DYSPEPSIA 11/08/21 20:30 Magnesium Hydroxide (Milk Of Magnesia) 2,400 mg PRN QHS PRN PO CONSTIPATION 11/08/21 20:30 Cyclosporine (Restasis) 1 drop BID OU 11/08/21 21:00 11/20/21 20:12 Gabapentin (Neurontin) 300 mg TID PO 11/08/21 21:00 11/20/21 20:12 Levothyroxine Sodium (Synthroid) 50 mcg DAILY06 PO 11/09/21 06:00 11/20/21 05:46 Tizanidine HCl (Zanaflex) 2 mg PRN Q8HRS PRN PO MUSCLE SPASMS 11/08/21 20:45 Aripiprazole (Abilify) 5 mg DAILY PO 11/09/21 09:00 11/10/21 20:32 DC 11/10/21 09:14 Divalproex Sodium (Depakote Er) 500 mg AFTRNOON PO 11/09/21 13:00 11/20/21 12:10 Divalproex Sodium (Depakote Er) 500 mg BID PO 11/08/21 21:00 11/20/21 20:13 Trazodone HCl (Desyrel) 100 mg QHS PO 11/08/21 21:00 11/20/21 20:12 Non-Formulary Medication (Iloperidone (Fanapt)) 6 mg BID PO 11/08/21 21:00 11/20/21 20:12 Melatonin (Melatonin) 6 mg QHS PO 11/09/21 21:00 11/20/21 20:13 Acetaminophen/ Codeine Phosphate (Tylenol #3) 1 tab PRN Q6HRS PRN PO MOD-SEV PAIN 11/08/21 21:00 11/12/21 08:13 Calcium Carbonate/ Glycine (Tums) 1,000 mg PRN Q4HRS PRN PO 1ST CHOICE INDIGESTION 11/08/21 21:15 11/09/21 08:38 Olanzapine (ZyPREXA ZYDIS) 2.5 mg PRN Q2HR PRN PO PSYCHOSIS 11/09/21 08:30 Aripiprazole (Abilify) 10 mg DAILY PO 11/11/21 09:00 11/20/21 08:25 Nicotine (Nicoderm Cq 14mg Patch) 1 patch DAILY TD 11/11/21 09:00 11/14/21 17:42 DC 11/14/21 08:22 Nicotine Polacrilex (Nicorette Gum) 2 mg PRN Q2HRS PRN BC SMOKING CESSATION 11/14/21 17:45 Hydrocortisone (Cortizone-10) 1 alton TID TP 11/17/21 21:00 11/20/21 20:13 I have reviewed the current psychotropics carefully including drug interactions. Risk benefit ratio favors no change other than as noted in my dictated progress note. Diagnosis: Problems: (1) Schizoaffective disorder, bipolar type (2) Impulse control disorder, unspecified (3) Anxiety disorder, unspecified LILY SANDERS MD Nov 20, 2021 22:12
[2021-11-21] MEDS ORDERED: NICO2GUM5 BC (03:47)
[2021-11-21] MEDS ORDERED: METH114C3 TP (03:48)
[2021-11-21] MEDS ORDERED: OLAN2.5T3 PO (03:51)
[2021-11-21] MEDS ORDERED: ARIP10TA9 PO (03:51)
[2021-11-21] MEDS ORDERED: MAG30ORA2 PO (03:52)
[2021-11-21] MEDS ORDERED: HYDR99LO TP (03:55)
[2021-11-21 05:55] VITALS: BP 114/74
[2021-11-21] MEDS: LEVOTHYROXINE 50 MCG TABLET PO SCH (06:00)
[2021-11-21] MEDS: DIVALPROEX ER 500 MG TAB.ER.24H PO SCH ×2 (08:32→13:22)
[2021-11-21] MEDS: ARIPiprazole 10 MG TABLET PO SCH (08:32)
[2021-11-21] MEDS: cycloSPORINE 0.05% OPTH 1 DROP DROPERETTE OU SCH (08:32)
[2021-11-21] MEDS: GABAPENTIN 300 MG CAPSULE. PO SCH (08:32)
[2021-11-21] MEDS: HYDROCORTISONE 1% LOTION BOTTLE. TP SCH (08:32)
[2021-11-21] MEDS ORDERED: TERB15CR12 TP (10:54)
[2021-11-21] MEDS ORDERED: TERBINAFINE 1% TOPICAL CREAM 30GM TUBE. TP SCH (21:00)
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
--- NOTE | 2021-11-21 21:45 | PDOC ---
Exam Note: Elliott Note: Please also refer to the separate dictated note~for this date of service dictated separately.~Patient seen individually. Discussed the patient with Nursing staff reviewed the chart.~Reviewed interim history and current functioning. Reviewed vital signs,~Labs/ Radiology~and current medications noted below. Continue current treatment with the changes noted in the dictated addendum note Assessment: Vital Signs/I&O: Vital Signs Date Time Temp Pulse Resp B/P (MAP) Pulse Ox O2 Delivery O2 Flow Rate FiO2 11/21/21 05:55 97.7 72 18 114/74 (87) 94 Room Air I & O 11/20/21 11/20/21 11/21/21 15:00 23:00 07:00 Intake Total 840 ml 200 ml Balance 840 ml 200 ml Current Medications: Meds: Current Medications Medications (Trade) Dose Ordered Sig/Jean Route PRN Reason Start Time Stop Time Status Last Admin Dose Admin Acetaminophen (Tylenol) 650 mg PRN Q6HRS PRN PO MILD PAIN / TEMP > 100.3'F 11/08/21 20:30 11/21/21 14:39 DC 11/20/21 18:11 Multi-Ingredient Ointment (Analgesic [place]) 1 alton PRN QID PRN TP MUSCLE PAIN 11/08/21 20:30 11/21/21 14:39 DC Al Hydroxide/Mg Hydroxide (Mylanta Plus Xs) 15 ml PRN AFTMEALHC PRN PO 2ND CHOICE DYSPEPSIA 11/08/21 20:30 11/21/21 14:39 DC Magnesium Hydroxide (Milk Of Magnesia) 2,400 mg PRN QHS PRN PO CONSTIPATION 11/08/21 20:30 11/21/21 14:39 DC Cyclosporine (Restasis) 1 drop BID OU 11/08/21 21:00 11/21/21 14:39 DC 11/21/21 08:32 Gabapentin (Neurontin) 300 mg TID PO 11/08/21 21:00 11/21/21 14:39 DC 11/21/21 08:32 Levothyroxine Sodium (Synthroid) 50 mcg DAILY06 PO 11/09/21 06:00 11/21/21 14:39 DC 11/21/21 06:00 Tizanidine HCl (Zanaflex) 2 mg PRN Q8HRS PRN PO MUSCLE SPASMS 11/08/21 20:45 11/21/21 14:39 DC Aripiprazole (Abilify) 5 mg DAILY PO 11/09/21 09:00 11/10/21 20:32 DC 11/10/21 09:14 Divalproex Sodium (Depakote Er) 500 mg AFTRNOON PO 11/09/21 13:00 11/21/21 14:39 DC 11/21/21 13:22 Divalproex Sodium (Depakote Er) 500 mg BID PO 11/08/21 21:00 11/21/21 14:39 DC 11/21/21 08:32 Trazodone HCl (Desyrel) 100 mg QHS PO 11/08/21 21:00 11/21/21 14:39 DC 11/20/21 20:12 Non-Formulary Medication (Iloperidone (Fanapt)) 6 mg BID PO 11/08/21 21:00 11/21/21 14:39 DC 11/21/21 08:38 Melatonin (Melatonin) 6 mg QHS PO 11/09/21 21:00 11/21/21 14:39 DC 11/20/21 20:13 Acetaminophen/ Codeine Phosphate (Tylenol #3) 1 tab PRN Q6HRS PRN PO MOD-SEV PAIN 11/08/21 21:00 11/21/21 14:39 DC 11/12/21 08:13 Calcium Carbonate/ Glycine (Tums) 1,000 mg PRN Q4HRS PRN PO 1ST CHOICE INDIGESTION 11/08/21 21:15 11/21/21 14:39 DC 11/09/21 08:38 Olanzapine (ZyPREXA ZYDIS) 2.5 mg PRN Q2HR PRN PO PSYCHOSIS 11/09/21 08:30 11/21/21 14:39 DC Aripiprazole (Abilify) 10 mg DAILY PO 11/11/21 09:00 11/21/21 14:39 DC 11/21/21 08:32 Nicotine (Nicoderm Cq 14mg Patch) 1 patch DAILY TD 11/11/21 09:00 11/14/21 17:42 DC 11/14/21 08:22 Nicotine Polacrilex (Nicorette Gum) 2 mg PRN Q2HRS PRN BC SMOKING CESSATION 11/14/21 17:45 11/21/21 14:39 DC Hydrocortisone (Cortizone-10) 1 alton TID TP 11/17/21 21:00 11/21/21 14:39 DC 11/21/21 08:32 Terbinafine HCl (LamISIL) 1 alton BID TP 11/21/21 21:00 11/21/21 14:39 DC I have reviewed the current psychotropics carefully including drug interactions. Risk benefit ratio favors no change other than as noted in my dictated progress note. Diagnosis: Problems: (1) Bipolar 1 disorder, mixed, partial remission (2) Schizoaffective disorder, bipolar type (3) Impulse control disorder, unspecified (4) Anxiety disorder, unspecified LILY SANDERS MD Nov 21, 2021 21:45
--- NOTE | 2021-11-22 08:10 | PDOC ---
Exam Note: Elliott Note: This note is a late entry for 11/20/2021 covers elements not covered in my initial note. Subjective: The patient was seen individually on 11/20/2021, discussed and reviewed the chart with Carlie FOX. The patient slept 7-1/4 hours previous night. I met with him in the dining room. Review of Systems: He states the rash in his upper thigh is better, still complaining of headache. No CV, , pulmonary, eye system symptoms on review. Mental Status Exam: The patient is reasonably oriented. Speech is coherent. Abstraction fair. Computation reasonable. Language function intact. Mood and affect improved. No psychotic symptoms, suicidal or homicidal ideation. Laboratory Data: Reviewed. Impression: Schizoaffective disorder, bipolar type, mixed with psychotic features. Anxiety disorder unspecified. Impulse control disorder unspecified. Plan: Continue current psychotropics. Adjust further as clinically indicated. Assessment: Vital Signs/I&O: Vital Signs Date Time Temp Pulse Resp B/P (MAP) Pulse Ox O2 Delivery O2 Flow Rate FiO2 11/21/21 05:55 97.7 72 18 114/74 (87) 94 Room Air I & O 11/21/21 11/21/21 11/22/21 15:00 23:00 07:00 Intake Total 480 ml Balance 480 ml Current Medications: I have reviewed the current psychotropics carefully including drug interactions. Risk benefit ratio favors no change other than as noted in my dictated progress note. Diagnosis: Problems: (1) Schizoaffective disorder, bipolar type (2) Impulse control disorder, unspecified (3) Anxiety disorder, unspecified (4) Bipolar 1 disorder, mixed, partial remission LILY SANDERS MD Nov 22, 2021 08:10
== END 2021-11-21 14:00 | DRG 885 ==
LOC: GEROPSY 19:35
PROVIDERS: ADMIT Psychiatry & Neurology Psychiatry; ATTEND Psychiatry & Neurology Psychiatry
DX: F25.0 Schizoaffective disorder, bipolar type (principal); E03.9 Hypothyroidism, unspecified; F17.210 Nicotine dependence, cigarettes, uncomplicated; F41.9 Anxiety disorder, unspecified; F63.9 Impulse disorder, unspecified; I25.10 Atherosclerotic heart disease of native coronary artery without angina pectoris; G43.909 Migraine, unspecified, not intractable, without status migrainosus; G47.00 Insomnia, unspecified; G62.9 Polyneuropathy, unspecified; K21.9 Gastro-esophageal reflux disease without esophagitis; Z79.899 Other long term (current) drug therapy; Z95.0 Presence of cardiac pacemaker
CPT/HCPCS: 36415; 80053; 80061; 80164; 81001; 82306; 82607; 83036; 83540; 83550; 83735; 84436; 84443; 84480; 85025; 85379; 86592; 93005; 99406